=== PATIENT | male | born 1990 | race Caucasian/White ===

== ENCOUNTER 2025-02-06 14:59 | Emergency (ER) | payer SELFPAY ==
[2025-02-06 15:03] VITALS: BP 129/83
[2025-02-06 16:36] LABS: % Basophils 0.6 % (0-2); % Eosinophils 3.4 % (0-6); % Immature Granulocytes 0.6 % (0-0.5); % Lymphocytes 6.9 % (20.5-51.1); % Monocytes 6.3 % (1.7-9.3); % Neutrophils 82.2 % (42.2-75.2); Absolute Basophils 0.1 10^3/uL (0-0.2); Absolute Eosinophils 0.4 10^3/uL (0-0.7); Absolute Immature Granulocytes 0.1 10^3/uL (0-0.05); Absolute Lymphocytes 0.8 10^3/uL (1.2-3.4); Absolute Monocytes 0.8 10^3/uL (0.1-0.6); Hematocrit 34.3 % (39.0-52.0); Hemoglobin 10.7 g/dL (13.0-18.0); Mean Corp Hgb Conc. 31.2 g/dL (33.0-37.0); Mean Corpuscular Hgb 23.7 pg (27.0-31.0); Mean Corpuscular Volume 75.9 fL (80.0-94.0); Mean Platelet Volume 8.5 fL (7.4-10.4); Nucleated Red Blood Cells % 0 % (-); Platelet Count 451 10^3/uL (130-400); Red Blood Cell Count 4.52 10^6/uL (4.70-6.10); Red Cell Dist. Width 15.2 % (11.5-14.5); White Blood Cell Count 12.1 10^3/uL (4.8-10.8)
[2025-02-06 16:47] LABS: ALT (SGPT) 18 U/L (0-50); AST (SGOT) 20 U/L (17-59); Albumin 3.3 g/dl (3.5-5.0); Alkaline Phosphatase 58 U/L (38-126); Blood Urea Nitrogen 20 mg/dl (9-20); Calcium 9.2 mg/dl (8.4-10.2); Carbon Dioxide 26 mmol/L (22-30); Chloride 106 mmol/L (98-107); Glucose 97 mg/dl (70-99); Potassium 4.3 mmol/L (3.5-5.1); Sodium 138 mmol/L (135-145); Total Bilirubin 0.5 mg/dl (0.2-1.3); Total Protein 6.5 g/dl (6.3-8.2); eGFR > 60.00
--- NOTE | 2025-02-06 17:09 | ED.GENMED ---
History of Present Illness
<Jacek Castrejon Jr., PA-C - Last Filed: 02/06/25 20:00>
General
Chief Complaint: DVT/Possible Blood Clot
Source: patient
Exam Limitations: none
Time Seen by Provider: 02/06/25 15:30
Nursing documentation reviewed up to this point in time: agreed with
History of Present Illness
History of Present Illness:
34-year-old male presenting to the emergency department today with concerns of swelling discomfort to the left leg worsening over the past week or so. Has some discomfort to the area denies any preceding injury. No history of blood clots no recent
trauma surgery immobilization no fevers or systemic symptoms.
Review of Systems
<JERO Pop Jr. Last Filed: 02/06/25 20:00>
Review of Systems
Allergies reviewed?: Yes
All Other Systems: ROS reviewed and negative except as documented in HPI and ROS
Phy Exam
<Jacek Castrejon Jr., PA-C - Last Filed: 02/06/25 20:00>
Physical Exam
Physical Exam:
GENERAL: Alert , in no apparent distress
EYE: pupils equal and reactive
NECK: Supple, no significant adenopathy.
ENT: o/p clr, mmm.
CARDIAC: Regular rate and rhythm .
LUNGS: Clear breath sounds bilaterally, no acute respiratory distress, no wheezes/rales/rhonchi
ABDOMEN: Soft, without focal tenderness, no r/g, no cvat
NEUROLOGICAL: Alert and oriented, no focal neuro deficits
SKIN: Redness swelling to the distal left vazquez roughly 5 cm in diameter. No fluctuance or induration. Vague pitting edema +1 from the mid vazquez distally otherwise warm and dry, skin intact.
MUSCULOSKELETAL: No edema, well perfused.
PSYCH: Normal and appropriate interaction.
Course
<JERO Pop Jr. Last Filed: 02/06/25 20:00>
Orders/Labs/Results
Orders:
Orders
02/06/25 16:10
Venous Doppler Lwr Ext Left [US Periph Venous LOWER Ext LT] Urgent
Comment:
Reason For Exam: leg swelling
02/06/25 16:28
CBC/With Diff [Complete Blood Count/With Diff] Urgent
CMP [Comprehensive Metabolic Panel] Urgent
Lyme Progressive Urgent
Comment: ADD ON
02/06/25 19:37
Add On- LAB Urgent
Tests Added?: Lyme progressive
Dexamethasone Sod Phosphate [Decadron] 4 mg IV NOW STA
Abnormal Lab Results
02/06/25
16:28
WBC 12.1 H 10^3/uL
(4.8-10.8)
RBC 4.52 L 10^6/uL
(4.70-6.10)
Hgb 10.7 L g/dL
(13.0-18.0)
Hct 34.3 L %
(39.0-52.0)
MCV 75.9 L fL
(80.0-94.0)
MCH 23.7 L pg
(27.0-31.0)
MCHC 31.2 L g/dL
(33.0-37.0)
RDW 15.2 H %
(11.5-14.5)
Plt Count 451 H 10^3/uL
(130-400)
Abs Immat Gran (auto) 0.1 H 10^3/uL
(0-0.05)
Absolute Neuts (auto) 10.0 H 10^3/uL
(1.4-6.5)
Absolute Lymphs (auto) 0.8 L 10^3/uL
(1.2-3.4)
Absolute Monos (auto) 0.8 H 10^3/uL
(0.1-0.6)
Immature Gran % 0.6 H %
(0-0.5)
Neutrophils % 82.2 H %
(42.2-75.2)
Lymphocytes % 6.9 L %
(20.5-51.1)
Albumin 3.3 L g/dl
(3.5-5.0)
02/06/25 16:28
02/06/25 16:28
Vital Signs
Initial and Last Documented VS:
Initial Vital Signs
Temp Pulse Resp BP Pulse Ox
98.4 F 105 18 129/83 100
02/06/25 15:03 02/06/25 15:03 02/06/25 15:03 02/06/25 15:03 02/06/25 15:03
Last Documented Vital Signs
Temp Pulse Resp BP Pulse Ox
98.4 F 105 18 129/83 100
02/06/25 15:03 02/06/25 15:03 02/06/25 15:03 02/06/25 15:03 02/06/25 15:03
<Jaclyn Jones, [employer] - Last Filed: 02/06/25 23:09>
Orders/Labs/Results
Orders:
Orders
02/06/25 16:10
Venous Doppler Lwr Ext Left [US Periph Venous LOWER Ext LT] Urgent
Comment:
Reason For Exam: leg swelling
02/06/25 16:28
CBC/With Diff [Complete Blood Count/With Diff] Urgent
CMP [Comprehensive Metabolic Panel] Urgent
Lyme Progressive Urgent
Comment: ADD ON
02/06/25 19:37
Add On- LAB Urgent
Tests Added?: Lyme progressive
Dexamethasone Sod Phosphate [Decadron] 4 mg IV NOW STA
Abnormal Lab Results
02/06/25
16:28
WBC 12.1 H 10^3/uL
(4.8-10.8)
RBC 4.52 L 10^6/uL
(4.70-6.10)
Hgb 10.7 L g/dL
(13.0-18.0)
Hct 34.3 L %
(39.0-52.0)
MCV 75.9 L fL
(80.0-94.0)
MCH 23.7 L pg
(27.0-31.0)
MCHC 31.2 L g/dL
(33.0-37.0)
RDW 15.2 H %
(11.5-14.5)
Plt Count 451 H 10^3/uL
(130-400)
Abs Immat Gran (auto) 0.1 H 10^3/uL
(0-0.05)
Absolute Neuts (auto) 10.0 H 10^3/uL
(1.4-6.5)
Absolute Lymphs (auto) 0.8 L 10^3/uL
(1.2-3.4)
Absolute Monos (auto) 0.8 H 10^3/uL
(0.1-0.6)
Immature Gran % 0.6 H %
(0-0.5)
Neutrophils % 82.2 H %
(42.2-75.2)
Lymphocytes % 6.9 L %
(20.5-51.1)
Albumin 3.3 L g/dl
(3.5-5.0)
02/06/25 16:28
02/06/25 16:28
Vital Signs
Initial and Last Documented VS:
Initial Vital Signs
Temp Pulse Resp BP Pulse Ox
98.4 F 105 18 129/83 100
02/06/25 15:03 02/06/25 15:03 02/06/25 15:03 02/06/25 15:03 02/06/25 15:03
Last Documented Vital Signs
Temp Pulse Resp BP Pulse Ox
98.4 F 105 18 129/83 100
02/06/25 15:03 02/06/25 15:03 02/06/25 15:03 02/06/25 15:03 02/06/25 15:03
<Jacek Castrejon Jr., PA-C - Last Filed: 02/06/25 20:00>
MDM/Problems Addressed
MDM/Problems Addressed:
34-year-old male presenting to the emergency department today with concerns of left leg swelling worsening over the past week or so. Denies any inciting event. There is a redness and swelling to the distal left vazquez mild tenderness to the area no
fluctuance or induration no evidence of abscess. Some surrounding pitting edema. Labs were obtained without acute findings other than slightly elevated white count and slight anemia.
<Jaclyn Jones NP - Last Filed: 02/06/25 23:09>
MDM/Problems Addressed
MDM/Problems Addressed:
34-year-old male presenting to the emergency department today with concerns of left leg swelling worsening over the past week or so. Denies any inciting event. There is a redness and swelling to the distal left vazquez mild tenderness to the area no
fluctuance or induration no evidence of abscess. Some surrounding pitting edema. Labs were obtained without acute findings other than slightly elevated white count and slight anemia.
7:15 p.m.
US neg for DVT
Red, warm area localized for 2-3 weeks, not improving, doubtful Lyme's but will switch to Doxycycline pending Lyme results.
<Jacek Castrejon Jr., PA-C - Last Filed: 02/06/25 20:00>
*Critical Care Note
Total Time (30-74mins, 75-104mins- exclusive of procedures): Not Applicable
ED Attending Note
<Jacek Castrejon Jr., PA-C - Last Filed: 02/06/25 20:00>
-
Portions of this chart may have been created with voice recognition software.� Occasional wrong word or��sound alike� substitutions may have occurred due to the inherent limitations of voice recognition software.
Discharge Plan
Departure
Patient Disposition: Home (Routine Discharge)
Date of Disposition: 02/06/25
Time of Disposition: 19:17
Patient with high blood pressure during this ER visit?: No
Condition: Good
Covid-19: Not Applicable
Discharge Problem:
Cellulitis
Instructions: Cellulitis (Skin Infection), Adult (DC)
Prescriptions:
New
doxycycline hyclate 100 mg tablet
100 mg PO BID Qty: 20 0RF
Referrals:
[facility] [Provider Group] - Follow up in 2-3 days
Activity Restrictions/Additional Instructions:
You came to the emergency department today with concerns of redness and swelling to your left lower extremity. This could be consistent with an infection. Please take the prescribed antibiotic and follow-up closely with your primary care doctor.
Return for any worsening, new or concerning symptoms.
Your Lyme test result should be done by Sunday. If you haven't heard anything by then call [phone] and ask for [place] and I will get it for you
If the Lyme test is positive you will need another 11 days on the Doxycycline
Interventions
Interventions:
*Risk Screen - Suicide Last Done: 02/06/25 15:03
*General Assessment Last Done: 02/06/25 15:03
*Neglect/Abuse Screening Last Done: 02/06/25 15:03
*ED- Fall Risk Assessment Last Done: 02/06/25 17:38
*Nursing Disposition Last Done: 02/06/25 19:51
ED- Pulmonary Assessment Last Done: 02/06/25 15:54
ED-Peripheral Vascular Assessment Last Done: 02/06/25 17:38
ED-Skin Assessment Last Done: 02/06/25 15:54
Discharge Date and Time
Print Language: PASHTO
[2025-02-09 14:12] LABS: Lyme Antibody Screen, EIA Presump. Positive (Negative)
== END 2025-02-06 19:51 | disposition home or self-care (01) ==
LOC: EMR 14:59
PROVIDERS: Physician Assistant; EMERGENCY PHYSICIAN Student in an Organized Health Care Education/Training Program
DX: L03.116 Cellulitis of left lower limb (principal)
CPT/HCPCS: 99284; 80053; 85025; 86617; 86618; 93971

== ENCOUNTER 2025-08-19 20:26 | Inpatient (IN) | payer MEDICARE, SELFPAY ==
[2025-08-19 13:07] VITALS: BP 112/66
[2025-08-19 13:27] LABS: Hematocrit 36.0 % (39.0-52.0); Hemoglobin 10.9 g/dL (13.0-18.0); Mean Corp Hgb Conc. 30.3 g/dL (33.0-37.0); Mean Corpuscular Volume 74.1 fL (80.0-94.0); Nucleated Red Blood Cells % 0 % (-); Platelet Count 527 10^3/uL (130-400); Red Cell Dist. Width 15.5 % (11.5-14.5)
[2025-08-19 13:35] LABS: ALT (SGPT) 13 U/L (0-50); AST (SGOT) 13 U/L (17-59); Albumin 3.4 g/dl (3.5-5.0); Alkaline Phosphatase 50 U/L (38-126); Blood Urea Nitrogen 16 mg/dl (9-20); Calcium 9.0 mg/dl (8.4-10.2); Carbon Dioxide 25 mmol/L (22-30); Chloride 101 mmol/L (98-107); Glucose 111 mg/dl (70-99); Lipase < 10 U/L (23-300); Potassium 4.2 mmol/L (3.5-5.1); Sodium 131 mmol/L (135-145); Total Protein 6.5 g/dl (6.3-8.2); eGFR > 60.00
--- NOTE | 2025-08-19 15:26 | ED.GENMED ---
History of Present Illness
<Jaclyn Jones NETWORK DESKTOP SUPPORT SPECIALIST - Last Filed: 08/22/25 14:40>
General
Chief Complaint: Abdominal Pain
Source: patient
Exam Limitations: none
Time Seen by Provider: 08/19/25 15:02
Nursing documentation reviewed up to this point in time: agreed with
History of Present Illness
History of Present Illness:
35-year-old male with history depression, is here for significant abdominal pain. Patient states he has been having abdominal issues for the past 8 months, he has lost about 35 pounds in that time. For the past 10 days his abdominal pain has been
constant waxing and waning from -08/07. He is having trouble sleeping due to the pain.
He saw [facility] and had a CT T scan of his abdomen and pelvis with contrast on 03/25/2025-I called there and they are supposed to be faxing me the read
He saw [facility] on 04/29/2025 and has an endoscopy and colonoscopy scheduled for August. He is here stating he cannot wait that long because the pain is unrelenting. He states they cannot see him any sooner
He has orders for lab work from them which he has not gotten done yet.
Denies fever or chills. Feels nauseous, has not vomited, has had diarrhea, last diarrheal stool was this morning, denies change in the color of his stools.
He has tried ibuprofen for the pain, has taken Imodium and simethicone without much relief
Past History
<Jaclyn Jones NETWORK DESKTOP SUPPORT SPECIALIST - Last Filed: 08/22/25 14:40>
Past History
ED Past Medical History: Psychiatric (Depression)
ED Past Surgical History: Orthopedic
Social History
Tobacco: Smoker
Alcohol: None
Personal:
Living: with family
Employment: Employed
Review of Systems
<Jaclyn Jones NETWORK DESKTOP SUPPORT SPECIALIST - Last Filed: 08/22/25 14:40>
Review of Systems
Allergies reviewed?: Yes
All Other Systems: ROS reviewed and negative except as documented in HPI and ROS
Constitutional: Reports weight loss (States he has lost 35 pounds in the past 8 months since his abdominal symptoms began); Denies fever or chills
Respiratory: Denies trouble breathing
Cardiac: Denies chest pain
ABD/GI: Reports abdominal pain, nausea, diarrhea and anorexia; Denies vomiting, bloody stools or black stools
: Denies dysuria or difficulty voiding
Musculoskeletal: Reports no symptoms
Skin: Reports no symptoms
Neurological: Reports no symptoms
Phy Exam
<Jaclyn Jones, NETWORK DESKTOP SUPPORT SPECIALIST - Last Filed: 08/22/25 14:40>
Physical Exam
Physical Exam:
GENERAL: No acute distress. A&Ox3.
CONSTITUTIONAL: Afebrile.
EYES: clear, conjunctivae normal
ENMT: moist mucus membranes, Pharynx nl
RESPIRATORY: Regular respirations, nonlabored, lungs clear.
CARDIOVASCULAR: Regular rate and rhythm, no murmurs, no rubs.
GI: patient is curled up on the bed holding his stomach., Flat, generally tender, hyperactive bowel sounds throughout
MUSCULOSKELETAL: Moves with ease. Well perfused.
SKIN: Warm, dry, pale
PSYCH: Anxious mood and affect. Well kept, interactive and appropriate
NEUROLOGIC: Awake, alert and oriented. No focal neurological deficits
Course
<Jaclyn Jones, NETWORK DESKTOP SUPPORT SPECIALIST - Last Filed: 08/22/25 14:40>
Orders/Labs/Results
Orders:
Orders
08/19/25 Breakfast
Clear Liquid
At Your Request: Full Participation
Clear Liquids: No red liquids
08/19/25 13:12
Amylase Urgent
Comment: TSH REFLEX,FERRITIN,TIBC,AMYLASE ADDED ON BY FLOOR 3:31PM 08-19-25
C-Reactive Protein Urgent
Complete Blood Count/With Diff Urgent
Comprehensive Metabolic Panel Urgent
Erythrocyte Sed Rate Urgent
Comment: CRP & ESR ADDED ON BY FLOOR 3:30PM 08-19-25
Ferritin Urgent
Folate Urgent
Comment: ADD ON
Iron Urgent
Comment: ADD
Lipase Urgent
TSH Reflex To Free T4 Urgent
Total Iron Binding Urgent
Vitamin B12 Urgent
Comment: ADD ON
08/19/25 15:16
0.9% Sodium Chloride 1000 ml [Nss] 1,000 ml IV BOLUS
HYDROmorphone [Dilaudid] 0.5 mg IV NOW STA
Ondansetron Injectable [Zofran] 4 mg IV NOW STA
08/19/25 15:23
Add On- LAB Urgent
Tests Added?: CRP/ESR
08/19/25 15:25
Iohexol [Omnipaque] See Protocol PO NOW STA
08/19/25 15:26
CT Abd/pel W Iv And Oral Contr Urgent
Comment:
Reason For Exam: abdominal pain, diarrhea, wt loss
08/19/25 15:31
Add On- LAB Urgent
Tests Added?: TSH, reflex T4, Ferritin, FE with TIBC and saturation, amylase
08/19/25 16:56
HYDROmorphone [Dilaudid] 1 mg IV NOW STA
08/19/25 18:51
STOOL [C difficile Antigen & Toxins] Urgent
CHERYL Source: Feces/Stool
Specimen Description:
Date Specimen was Collected: 08/20/25
Time Specimen was Collected: 12:09
Stool Culture Urgent
CHERYL Source: Feces/Stool
Specimen Description:
Date Specimen was Collected: 08/20/25
Time Specimen was Collected: 12:09
08/19/25 19:21
LevoFLOXacin 500 MG/100 ML [Levaquin] 500 mg in 100 ml IV NOW
MetroNIDAZOLE 500 MG/100 ML [Flagyl 500 mg] 100 ml IV NOW
08/19/25 19:46
Calprotectin, Fecal [S] Urgent
Date Specimen was Collected: 08/20/25
Time Specimen was Collected: 12:09
08/19/25 19:47
Admit/Transfer Patient As Directed
Co-Sign Provider:
Level of Care: Inpatient admission
Assign to:: Medical/Surgical
Physician / Group: Fred
Diagnosis: Acute Crohn's
Reason for Hospitalization: IV abx
Expected length of stay greater than two midnights?: Yes
ELOS- Estimated Length of Stay in days: 3
I certify the patient meets the requirements for IP care: Yes
PRN Pain Medication Management As Directed
May give lesser potent ordered pain med per pt: Yes
preference::
Protocol:: Medication orders for pain may be administered in a
manner that supports deferring to patient preference
when the pt is:
- Requesting an ordered lesser potent pain medication.
Least to most potent pain medications are defined
as: acetaminophen < NSAID < tramadol < opioids
(morphine, oxycodone, hydromorphone).
- Requesting a lesser dose of the same medication IF
ORDERED.
- Requesting a less intrusive route of administration
if both routes are prescribed by the provider (PO <
IV).
08/19/25 19:49
Code Status As Directed
Resuscitation Status: Full Code
08/19/25 19:54
Add On- LAB Routine
Tests Added?: iron, folate, vit b12
08/19/25 20:13
HYDROmorphone [Dilaudid] 1 mg IV NOW STA
08/19/25 20:30
0.9% Sodium Chloride 1000 ml [Nss] 1,000 ml IV 125 mls/hr
08/19/25 21:22
Acetaminophen [Tylenol] 650 mg PO Q4HPRN PRN
HYDROmorphone [Dilaudid] 0.5 mg IV Q3HPRN PRN
Ondansetron Injectable [Zofran] 4 mg IV Q6HPRN PRN
08/19/25 21:22
DIETARY IP CONSULT Routine
Reason for Consult: weight loss
GASTROINTESTINAL CONSULT Routine
Consulting Provider: Juanis Barrientos
Was physician already notified: Yes
Activity As Directed
Activity Level: Out of Bed-Early Mobility
With Assistance
Pneumatic Compression Sleeves As Directed
Type: Knee high
Vital Signs As Directed
Frequency: Per unit guidelines
DX Deep Vein Thrombosis Video Routine
08/20/25 05:25
Basic Metabolic Panel IN AM
Complete Blood Count/No Diff IN AM
Magnesium IN AM
08/20/25 08:00
Bupropion(24Hr)Extended Releas [WELLBUTRIN XL (24 hour extended release)] 300 mg PO DAILY
08/20/25 14:00
Ferric Gluconate [Ferrlecit] 125 mg 0.9% Sodium Chloride 100 ml [Nss] 100 ml IV DAILY@1400
Abnormal Lab Results
08/19/25
13:12
Hgb 10.9 L g/dL
(13.0-18.0)
Hct 36.0 L %
(39.0-52.0)
MCV 74.1 L fL
(80.0-94.0)
MCH 22.4 L pg
(27.0-31.0)
MCHC 30.3 L g/dL
(33.0-37.0)
RDW 15.5 H %
(11.5-14.5)
Plt Count 527 H 10^3/uL
(130-400)
Abs Immat Gran (auto) 0.1 H 10^3/uL
(0-0.05)
Absolute Neuts (auto) 8.0 H 10^3/uL
(1.4-6.5)
Absolute Lymphs (auto) 0.6 L 10^3/uL
(1.2-3.4)
Absolute Monos (auto) 1.2 H 10^3/uL
(0.1-0.6)
Immature Gran % 0.8 H %
(0-0.5)
Neutrophils % 80.1 H %
(42.2-75.2)
Lymphocytes % 5.7 L %
(20.5-51.1)
Monocytes % 11.7 H %
(1.7-9.3)
ESR 51 H mm/hour
(0-20)
Sodium 131 L mmol/L
(135-145)
Glucose 111 H mg/dl
(70-99)
Iron < 20 L ug/dl
(49-181)
TIBC 175 L ug/dl
(261-462)
AST 13 L U/L
(17-59)
C-Reactive Protein 193.30 H mg/L
(0.0-10.00)
Albumin 3.4 L g/dl
(3.5-5.0)
Lipase < 10 L U/L
(23-300)
08/19/25 13:12
08/19/25 13:12
Vital Signs
Initial and Last Documented VS:
Initial Vital Signs
Temp Pulse Resp BP Pulse Ox
98.6 F 108 20 112/66 100
08/19/25 13:07 08/19/25 13:07 08/19/25 13:07 08/19/25 13:07 08/19/25 13:07
Last Documented Vital Signs
Temp Pulse Resp BP Pulse Ox
97.6 F 72 16 126/64 98
08/22/25 07:50 08/22/25 07:50 08/22/25 07:50 08/22/25 07:50 08/22/25 07:50
<Narciso French PA-C - Last Filed: 08/19/25 19:28>
Orders/Labs/Results
Orders:
Orders
08/19/25 Breakfast
Clear Liquid
At Your Request: Full Participation
Clear Liquids: No red liquids
08/19/25 13:12
Amylase Urgent
Comment: TSH REFLEX,FERRITIN,TIBC,AMYLASE ADDED ON BY FLOOR 3:31PM 08-19-25
C-Reactive Protein Urgent
Complete Blood Count/With Diff Urgent
Comprehensive Metabolic Panel Urgent
Erythrocyte Sed Rate Urgent
Comment: CRP & ESR ADDED ON BY FLOOR 3:30PM 08-19-25
Ferritin Urgent
Folate Urgent
Comment: ADD ON
Iron Urgent
Comment: ADD
Lipase Urgent
TSH Reflex To Free T4 Urgent
Total Iron Binding Urgent
Vitamin B12 Urgent
Comment: ADD ON
08/19/25 15:16
0.9% Sodium Chloride 1000 ml [Nss] 1,000 ml IV BOLUS
HYDROmorphone [Dilaudid] 0.5 mg IV NOW STA
Ondansetron Injectable [Zofran] 4 mg IV NOW STA
08/19/25 15:23
Add On- LAB Urgent
Tests Added?: CRP/ESR
08/19/25 15:25
Iohexol [Omnipaque] See Protocol PO NOW STA
08/19/25 15:26
CT Abd/pel W Iv And Oral Contr Urgent
Comment:
Reason For Exam: abdominal pain, diarrhea, wt loss
08/19/25 15:31
Add On- LAB Urgent
Tests Added?: TSH, reflex T4, Ferritin, FE with TIBC and saturation, amylase
08/19/25 16:56
HYDROmorphone [Dilaudid] 1 mg IV NOW STA
08/19/25 18:51
STOOL [C difficile Antigen & Toxins] Urgent
CHERYL Source: Feces/Stool
Specimen Description:
Date Specimen was Collected: 08/20/25
Time Specimen was Collected: 12:09
Stool Culture Urgent
CHERYL Source: Feces/Stool
Specimen Description:
Date Specimen was Collected: 08/20/25
Time Specimen was Collected: 12:09
08/19/25 19:21
LevoFLOXacin 500 MG/100 ML [Levaquin] 500 mg in 100 ml IV NOW
MetroNIDAZOLE 500 MG/100 ML [Flagyl 500 mg] 100 ml IV NOW
08/19/25 19:46
Calprotectin, Fecal [S] Urgent
Date Specimen was Collected: 08/20/25
Time Specimen was Collected: 12:09
08/19/25 19:47
Admit/Transfer Patient As Directed
Co-Sign Provider:
Level of Care: Inpatient admission
Assign to:: Medical/Surgical
Physician / Group: Fred
Diagnosis: Acute Crohn's
Reason for Hospitalization: IV abx
Expected length of stay greater than two midnights?: Yes
ELOS- Estimated Length of Stay in days: 3
I certify the patient meets the requirements for IP care: Yes
PRN Pain Medication Management As Directed
May give lesser potent ordered pain med per pt: Yes
preference::
Protocol:: Medication orders for pain may be administered in a
manner that supports deferring to patient preference
when the pt is:
- Requesting an ordered lesser potent pain medication.
Least to most potent pain medications are defined
as: acetaminophen < NSAID < tramadol < opioids
(morphine, oxycodone, hydromorphone).
- Requesting a lesser dose of the same medication IF
ORDERED.
- Requesting a less intrusive route of administration
if both routes are prescribed by the provider (PO <
IV).
08/19/25 19:49
Code Status As Directed
Resuscitation Status: Full Code
08/19/25 19:54
Add On- LAB Routine
Tests Added?: iron, folate, vit b12
08/19/25 20:13
HYDROmorphone [Dilaudid] 1 mg IV NOW STA
08/19/25 20:30
0.9% Sodium Chloride 1000 ml [Nss] 1,000 ml IV 125 mls/hr
08/19/25 21:22
Acetaminophen [Tylenol] 650 mg PO Q4HPRN PRN
HYDROmorphone [Dilaudid] 0.5 mg IV Q3HPRN PRN
Ondansetron Injectable [Zofran] 4 mg IV Q6HPRN PRN
08/19/25 21:22
DIETARY IP CONSULT Routine
Reason for Consult: weight loss
GASTROINTESTINAL CONSULT Routine
Consulting Provider: Juanis Barrientos
Was physician already notified: Yes
Activity As Directed
Activity Level: Out of Bed-Early Mobility
With Assistance
Pneumatic Compression Sleeves As Directed
Type: Knee high
Vital Signs As Directed
Frequency: Per unit guidelines
DX Deep Vein Thrombosis Video Routine
08/20/25 05:25
Basic Metabolic Panel IN AM
Complete Blood Count/No Diff IN AM
Magnesium IN AM
08/20/25 08:00
Bupropion(24Hr)Extended Releas [WELLBUTRIN XL (24 hour extended release)] 300 mg PO DAILY
08/20/25 14:00
Ferric Gluconate [Ferrlecit] 125 mg 0.9% Sodium Chloride 100 ml [Nss] 100 ml IV DAILY@1400
Abnormal Lab Results
08/19/25
13:12
Hgb 10.9 L g/dL
(13.0-18.0)
Hct 36.0 L %
(39.0-52.0)
MCV 74.1 L fL
(80.0-94.0)
MCH 22.4 L pg
(27.0-31.0)
MCHC 30.3 L g/dL
(33.0-37.0)
RDW 15.5 H %
(11.5-14.5)
Plt Count 527 H 10^3/uL
(130-400)
Abs Immat Gran (auto) 0.1 H 10^3/uL
(0-0.05)
Absolute Neuts (auto) 8.0 H 10^3/uL
(1.4-6.5)
Absolute Lymphs (auto) 0.6 L 10^3/uL
(1.2-3.4)
Absolute Monos (auto) 1.2 H 10^3/uL
(0.1-0.6)
Immature Gran % 0.8 H %
(0-0.5)
Neutrophils % 80.1 H %
(42.2-75.2)
Lymphocytes % 5.7 L %
(20.5-51.1)
Monocytes % 11.7 H %
(1.7-9.3)
ESR 51 H mm/hour
(0-20)
Sodium 131 L mmol/L
(135-145)
Glucose 111 H mg/dl
(70-99)
Iron < 20 L ug/dl
(49-181)
TIBC 175 L ug/dl
(261-462)
AST 13 L U/L
(17-59)
C-Reactive Protein 193.30 H mg/L
(0.0-10.00)
Albumin 3.4 L g/dl
(3.5-5.0)
Lipase < 10 L U/L
(23-300)
08/19/25 13:12
08/19/25 13:12
Vital Signs
Initial and Last Documented VS:
Initial Vital Signs
Temp Pulse Resp BP Pulse Ox
98.6 F 108 20 112/66 100
08/19/25 13:07 08/19/25 13:07 08/19/25 13:07 08/19/25 13:07 08/19/25 13:07
Last Documented Vital Signs
Temp Pulse Resp BP Pulse Ox
97.6 F 72 16 126/64 98
08/22/25 07:50 08/22/25 07:50 08/22/25 07:50 08/22/25 07:50 08/22/25 07:50
<Jaclyn Jones NP - Last Filed: 08/22/25 14:40>
MDM/Problems Addressed
Differential Diagnosis Includes:
Diverticulitis, colitis
MDM/Problems Addressed:
35-year-old male with history depression, is here for significant abdominal pain. Patient states he has been having abdominal issues for the past 8 months, he has lost about 35 pounds in that time. For the past 10 days his abdominal pain has been
constant waxing and waning from 2-08/07. He is having trouble sleeping due to the pain.
He saw [facility] and had a CT T scan of his abdomen and pelvis with contrast on 03/25/2025-I called there and they are supposed to be faxing me the read
He saw [facility] on 04/29/2025 and has an endoscopy and colonoscopy scheduled for August. He is here stating he cannot wait that long because the pain is unrelenting. He states they cannot see him any sooner
He has orders for lab work from them which he has not gotten done yet.
Denies fever or chills. Feels nauseous, has not vomited, has had diarrhea, last diarrheal stool w
CBC: WBCs 9.9 with a left shift. Hemoglobin 10.9 consistent with his last one of 02/06/2025 indices indicating a chronic element to the anemia CMP:
CMP with no clinically significant abnormality.
Lipase WNL
CRP 193.30
ESR 51
5:[address] scan
Case discussed with Cheng FINNEGAN who will assume care from this point.
<Jaclny Jones NETWORK DESKTOP SUPPORT SPECIALIST - Last Filed: 08/22/25 14:40>
*Pulse Oximetry
SaO2: 100
Oxygen Mode of Delivery: Room air
<Narciso French PA-C - Last Filed: 08/19/25 19:28>
*Pulse Oximetry
Patient hypoxic: no
*Critical Care Note
Total Time (30-74mins, 75-104mins- exclusive of procedures): Not Applicable
<Narciso French PA-C - Last Filed: 08/19/25 19:28>
Update Note
Update Note:
Assumed care of patient pending CT of abdomen. CT demonstrates
1. SEVERE ACUTE ACTIVE CROHN'S DISEASE involving the ILEUM and PROXIMAL COLON with severe wall thickening and mucosal hyperenhancement. An acute infectious ileocolitis is a less likely diagnostic possibility given the chronicity of the patient's
symptoms.
I spoke with GI who recommended Levaquin and Flagyl for treatment. Stool studies were ordered but patient unable to provide any sample. Will admit to hospital given ongoing symptoms weight loss and malnutrition
ED Attending Note
<Jaclyn Jones NETWORK DESKTOP SUPPORT SPECIALIST - Last Filed: 08/22/25 14:40>
-
Portions of this chart may have been created with voice recognition software.� Occasional wrong word or��sound alike� substitutions may have occurred due to the inherent limitations of voice recognition software.
Discharge Plan
Departure
Patient Disposition: Admit
Date of Disposition: 08/19/25
Time of Disposition: 19:27
Presentation/result/management discussed w/ accepting MD/DO: Hospitalist
Discharge Problem:
Acute Crohn's disease
Interventions
Interventions:
*Risk Screen - Suicide Last Done: 08/20/25 17:10
*General Assessment Last Done: 08/19/25 13:07
*Neglect/Abuse Screening Last Done: 08/19/25 15:30
*ED- Fall Risk Assessment Last Done: 08/20/25 00:29
*ED COVID-19 Vaccine History Last Done: 08/20/25 17:10
*ED Influenza Vaccine History Last Done: 08/19/25 15:30
*Nursing Disposition Last Done: 08/20/25 17:15
NC-Eplfkb-Ibcxxwiced Assessment Last Done: 08/19/25 15:30
Discharge Date and Time
Discharge Date/Time: 08/20/25 17:16
[2025-08-19] MEDS: DILAUDID 0.5 MG IV ×2 (15:38→23:24)
[2025-08-19] MEDS: ZOFRAN 4 MG IV ×2 (15:38→23:24)
[2025-08-19] MEDS: OMNIPAQUE 50 ML PO (15:39)
[2025-08-19] MEDS: NSS 1000 IV ×2 (15:39→21:10)
[2025-08-19 16:00] VITALS: BP 98/62
[2025-08-19 16:24] LABS: Amylase 41 U/L (30-110)
[2025-08-19 16:33] LABS: Total Iron Binding Capacity 175 ug/dl (261-462)
[2025-08-19 16:43] LABS: C-Reactive Protein 193.30 mg/L (0.0-10.00)
[2025-08-19 17:00] VITALS: BP 115/70
[2025-08-19 17:04] LABS: Ferritin 211.0 ng/ml (17.9-464.0)
[2025-08-19] MEDS: DILAUDID 1 MG IV ×2 (17:04→20:15)
--- NOTE | 2025-08-19 19:54 | HPS.HSE ---
Addendum entered and electronically signed by Winston Ibarra DO 08/19/25 21:15:
Patient seen and examined independently. Agree with findings and plan as set forth by Judith Perry PA-C.
Patient is a 35y M with PMH significant for depression who presents to ED complaining of 8 months of weight loss, left -sided abdominal pain, loose / watery stools, etc. Patient denies any bloody or mucousy stools. No prior history of IBD / GI
issues. No known family history of GI disease. Patient estimates that he has lost about 30 lbs in the past 8 months.
Ass:
Colitis / Terminal Ileitis
Weight Loss
Iron Deficiency Anemia
Hyponatremia
Anxiety / Depression
Plan:
Admit for further evaluation and treatment.
Suspect IBD > infectious etiology based on history / exam.
Empiric abx for now per GI recs.
Follow-up stool studies.
GI evaluation for additional recommendations and likely endoscopic examination.
IV iron replacement. Follow H&H.
Original Note:
Family Physician
-
Family Physician: * NONE
Chief Complaint
-
Abdominal Pain
History of Present Illness
Patient is a 35 y/o male past medical history of depression who presents with abdominal pain. Patient reports he has not been doing well for at least the 8 months. He reports worsening abdominal pain particularly over the past 10 days. He reports
anorexia and notes over the last 8 months has lost over 30 lbs. He reports nausea but not vomiting. He reports non-bloody diarrhea. He reports feeling fatigues, and having no energy. He denies fevers, sweats or chills.
Medical History
Past Medical History
Past Medical History: Reports Other
Additional Past Medical History:
Depression
Past Surgical History: Reports Other
Additional Past Surgical History:
Left Shoulder Surgery
Social History
Tobacco: Non-smoker
Alcohol: Occasional (None recently)
Family History
Family History: Other (Denies family history of Crohn's or ulcerative colitis)
Allergies / Home Medications
Allergies reflects when Allergies were last updated in [facility].
Home Medications with original date entered in [facility]
Allergy/Medication List:
Allergies
Allergy/AdvReac Type Severity Reaction Status Date / Time
No Known Allergies Allergy Unverified 08/19/25 13:07
Home Medications
bupropion HCl 300 mg 24 hr tablet, extended release 300 mg PO DAILY 08/19/25
Review of Systems
-
History Source: Patient
A 12 point ROS was completed and negative except as noted: Yes
Constitutional: Reports Weight Loss; Denies Fever or Chills
Respiratory: Denies Cough or Trouble Breathing
Abdomen/GI: Reports See HPI
Physical Exam
Vital Signs
Vital Signs
Temp Pulse Resp BP Pulse Ox
98.6 F 108 20 115/70 96
08/19/25 13:07 08/19/25 13:07 08/19/25 13:07 08/19/25 17:00 08/19/25 18:45
Physical Exam
General: Other (35 y/o male appears thin and pale)
HEENT: Anicteric, Moist mucous membranes and Other (notable dark circles under his eyes)
Respiratory: Clear and Non Labored Respirations
Cardiac: S1/S2, Regular Rhythm and Tachycardia (Slightly)
GI: Soft and Tender (Diffuse)
Rectal: Deferred by Provider
Musculoskeletal: No Clubbing, No Cyanosis and No Edema
Skin: Warm and Dry
Neuro: Awake, Alert, Oriented and Nonfocal/grossly intact
Psych: Calm
Laboratory Results
-
08/19/25 13:12
08/19/25 13:12
Laboratory Results
Total Bilirubin 0.7 mg/dl (0.2-1.3) 08/19/25 13:12
AST 13 U/L (17-59) L 08/19/25 13:12
ALT 13 U/L (0-50) 08/19/25 13:12
Alkaline Phosphatase 50 U/L (38-126) 08/19/25 13:12
Lipase < 10 U/L (23-300) L 08/19/25 13:12
Abd/Pelvis:
SEVERE ACUTE ACTIVE CROHN'S DISEASE involving the ILEUM and PROXIMAL COLON with severe wall thickening and mucosal hyperenhancement. An acute infectious ileocolitis is a less likely diagnostic possibility given the chronicity of the patient's
symptoms.
Data Reviewed
-
Lab Data: Labs Reviewed by me
Impression/Plan
-
Colitis / Terminal Ileitis, likely new-diagnosis of Crohn's Disease
-Consult GI
-Check stool cultures
-Check fecal calprotectin
-Continue levofloxacin and metronidazole
-Allow clear liquids
Iron Deficiency Anemia
-Give coarse of IV iron during hospitalization as iron level is <20
Hyponatremia, likely related to poor oral intake
-Continue IVFs
-Recheck sodium in AM
Depression
-Continue bupropion
DVT proph: SCDs
Code Status: Full Code
[2025-08-19] MEDS: FLAGYL 500 MG 100 IV (20:05)
[2025-08-19] MEDS: LEVAQUIN 100 IV (20:06)
[2025-08-19 20:08] LABS: Iron < 20 ug/dl (49-181)
[2025-08-19 20:11] VITALS: BMI 22.4
[2025-08-19 20:26] VITALS: BMI 22.4
[2025-08-19 21:33] LABS: Folate 5.3 ng/ml (2.76-20); Vitamin B12 523 pg/ml (239-931)
[2025-08-19 23:09] VITALS: BP 113/67
[2025-08-20] MEDS: TYLENOL 650 MG PO ×2 (01:41→20:13)
[2025-08-20] MEDS: DILAUDID 0.5 MG IV ×5 (02:58→21:58)
[2025-08-20 05:21] VITALS: BP 107/63
[2025-08-20 05:48] LABS: Hematocrit 28.3 % (39.0-52.0); Hemoglobin 9.0 g/dL (13.0-18.0); Mean Corp Hgb Conc. 31.8 g/dL (33.0-37.0); Mean Corpuscular Volume 72.9 fL (80.0-94.0); Platelet Count 380 10^3/uL (130-400); Red Cell Dist. Width 15.0 % (11.5-14.5)
[2025-08-20 06:06] LABS: Blood Urea Nitrogen 13 mg/dl (9-20); Calcium 8.3 mg/dl (8.4-10.2); Carbon Dioxide 25 mmol/L (22-30); Chloride 103 mmol/L (98-107); Estimated Creatinine Clearance 109 ml/min; Glucose 91 mg/dl (70-99); Magnesium 1.7 mg/dl (1.6-2.3); Potassium 4.0 mmol/L (3.5-5.1); Sodium 134 mmol/L (135-145); eGFR > 60.00
[2025-08-20] MEDS: NSS 1000 IV ×2 (06:35→17:20)
[2025-08-20 07:00] VITALS: BP 102/57
--- NOTE | 2025-08-20 09:16 | CON.GI ---
Addendum entered and electronically signed by Kimmie Dorado DO 08/20/25 10:57:
The patient was seen and examined by me independently in collaboration with the nurse practitioner.
Past medical history/social history/medications/allergies/family history reviewed.
Lab data and imaging data reviewed.
Robert is a 35 y.o. male with pmhx depression who presents with 8 months of worsening LLQ abdominal pain, weight loss and irregular bowels. His symptoms were intermittent at first and he was able to tolerate them, but over the last few weeks they have
become progressively worse. He saw a GI COLLECT ON DELIVERY CLERK with [facility] (does not recall what location) who suspected new dx of IBD, recommended colonoscopy. Due to insurance issues, he had to reschedule and the next available is in September. He called many times to
try and expedite colonoscopy but was unable to move it up, prompting him to come in for urgent evaluation. He reports losing 30 lbs in the last few months. No family history of celiac disease, IBD or CRC.
Labs significant for microcytic, iron deficiency anemia, Hgb 10.7 --> 90, MCV 72, Plt 380, iron <20, ferritin 211, CRP elevated to 193.3, albumin 3.4
CT A/P: mild hepatosplenomegaly, moderate right sided mesenteric lymphadenopathy, small amount of ascites in the pelvic cul-de-sec and a long length of distal ileum (including TI) demonstrating severe circumferential wall thickening, mucosal
hyperenhancement and intramural edema, loop of ileum extends through the plevis and into left side of midabdomen; large amount of wall thickening in the cecum, ascending colon and proximal transverse colon, concerning for severe acute active crohns
disease involving the ileum and proximal colon.
Overall, findings on labs and imaging suggestive of new crohns colitis diagnosis, supported with patients symptomatology
-CLD, bowel prep today and NPO after midnight for colonoscopy tomorrow to confirm diagnosis
-IV iron
-check c.diff, fecal calpro
-check hepatitis serologies and TB, in the event he requires biologics
Original Note:
Consultation
-
Date/Time Consultation Requested: 08/19/252121
Date/Time Consultation Performed: 08/20/2566
Requesting Provider: Judith Perry PA-C
Performing Provider: PAT Dahl, Danya Dorado DO
Reason for Consultation: concern for crohn's disease
Medical History
Chief Complaint / HPI
Chief Complaint: wt loss, abdominal pain
History of Present Illness:
Pt is a 35yo with hx depression with about 8 months of GI symptoms with abdominal pain left sided, wt loss 35 lbs and change in stool pattern with diarrhea. His symptoms were up and down but last 2 weeks worse. He did seak care with MD in
[place] and was set up for EGD/colon but not until September. He states with continued symptoms present for evaluation. On admission- CT with concern for severe acute active crohn's disease in ileum and proximal colon small amount of ascites,
moderate right sidede mesenteric lymphadenopathy, mild HSM. Pt admits to left sided pain. Pain is worse with eating and better with resting. He also has nausea without vomiting but denies any issue with odynophagia, dysphagia, GERD, constipation,
blood or black in stools. No hx EGD or colonoscopy in past. no family hx IBD. On admission Na 131, glucose 111, iron <20, TIBC 175, % sat no reported, ferritin 211, CRP 193.3, platelets 537, hbg 10.9 with drop to 9, MCV 74.1 albumin 3.4.
Past Medical History
Past Medical History: Psychiatric (depression)
Social History
Tobacco: Smoker (2-3 cig per week)
Alcohol: None
Drug: None
Personal:
Living: With Family
Employment: Other (pt declined to answer)
Family History
Family History: Other (no family hx IBD, GI cancers )
Allergies / Home Medications
Allergy/AdvReac Type Severity Reaction Status Date / Time
No Known Allergies Allergy Unverified 08/19/25 13:07
�Medication �Instructions �Recorded
bupropion HCl 300 mg 24 hr tablet, 300 mg PO DAILY 10/22/25
extended release
Review of Systems
-
History Source: Patient
Constitutional: Reports Weight Loss ( 35 lbs ) and Fatigue
EENT: Reports No Symptoms
Respiratory: Reports No Symptoms
Cardiac: Reports No Symptoms
Abdomen/GI: Reports Abdominal Pain, Nausea and Diarrhea
: Reports No Symptoms
Musculoskeletal: Reports No Symptoms
Skin: Reports No Symptoms
Neurological: Reports Weakness
Endocrine: Reports No Symptoms
Hematologic/Lymphatic: Reports No Symptoms
Vital Signs
Temp Pulse Resp BP Pulse Ox
97.7 F 69 16 102/57 98
08/20/25 07:00 08/20/25 07:00 08/20/25 07:00 08/20/25 07:00 08/20/25 07:00
Physical Exam
Exam
General: Other (thin appearing and pale )
HEENT: Normocephalic and Anicteric
Respiratory: Clear
Cardiac: Regular Rhythm
GI: Soft, Non Distended and Tender (left sided )
Musculoskeletal: No Clubbing and No Cyanosis
Skin: Warm and Dry
Neuro: Awake, Alert and AO x 3
Psych: Calm
Results
WBC 6.6 10^3/uL (4.8-10.8) 08/20/25 05:25
Hgb 9.0 g/dL (13.0-18.0) L 08/20/25 05:25
Hct 28.3 % (39.0-52.0) L 08/20/25 05:25
MCV 72.9 fL (80.0-94.0) L 08/20/25 05:25
Plt Count 380 10^3/uL (130-400) D 08/20/25 05:25
Absolute Neuts (auto) 8.0 10^3/uL (1.4-6.5) H 08/19/25 13:12
Sodium 134 mmol/L (135-145) L 08/20/25 05:25
Potassium 4.0 mmol/L (3.5-5.1) 08/20/25 05:25
Chloride 103 mmol/L (98-107) 08/20/25 05:25
Carbon Dioxide 25 mmol/L (22-30) 08/20/25 05:25
BUN 13 mg/dl (9-20) 08/20/25 05:25
Creatinine 1.0 mg/dL (0.7-1.3) 08/20/25 05:25
Calcium 8.3 mg/dl (8.4-10.2) L 08/20/25 05:25
Total Bilirubin 0.7 mg/dl (0.2-1.3) 08/19/25 13:12
AST 13 U/L (17-59) L 08/19/25 13:12
ALT 13 U/L (0-50) 08/19/25 13:12
Alkaline Phosphatase 50 U/L (38-126) 08/19/25 13:12
Amylase 41 U/L (30-110) 08/19/25 13:12
Lipase < 10 U/L (23-300) L 08/19/25 13:12
Diagnostic Image Results:
08/19/25 CT Abd/pel W Iv And Oral Contr
1. SEVERE ACUTE ACTIVE CROHN'S DISEASE involving the ILEUM and PROXIMAL COLON with severe wall thickening and mucosal hyperenhancement. An acute infectious ileocolitis is a less likely diagnostic possibility given the chronicity of the patient's
symptoms.
2. Small amount of ascites in the pelvic cul-de-sac.
3. Moderate right sided mesenteric lymphadenopathy.
4. Mild hepatosplenomegaly.
5. Transitional lumbosacral vertebral segment.
Prior GI Procedures:
EGD: none
Colonoscopy: none
Assessment / Plan
-
Pt is a 35yo with hx depression with about 8 months of GI symptoms with abdominal pain left sided, wt loss 35 lbs and change in stool pattern with diarrhea. His symptoms were up and down but last 2 weeks worse. He did seek care with MD in
[place] and was set up for EGD/colon but not until September. He states with continued symptoms present for evaluation. On admission- CT with concern for severe acute active crohn's disease in ileum and proximal colon small amount of ascites,
moderate right sidede mesenteric lymphadenopathy, mild HSM. Pt admits to left sided pain. Pain is worse with eating and better with resting. He also has nausea without vomiting but denies any issue with odynophagia, dysphagia, GERD, constipation,
blood or black in stools. No hx EGD or colonoscopy in past. no family hx IBD. On admission Na 131, glucose 111, iron <20, TIBC 175, % sat no reported, ferritin 211, CRP 193.3, platelets 537, hbg 10.9 with drop to 9, MCV 74.1 albumin 3.4.
-8 month onset of wt loss, diarrhea and left sided abdominal pain
-CT concern for severe acute active crohn's disease in ileum and proximal colon
-microcytic iron deficiency anemia
-elevated CRP/ESR
-hypoalbuminemia
-anxiety/depression
PLAN:
etiology of symptoms with concern for underlying crohns disease vs infectious vs other
check stools studies
plan for colonoscopy 08/21
clear diet
trend hbg
IV iron
CRP/ESR noted as elevated fecal price pending, TSH pending
spoke with patient about need for treatment based on colonoscopy finding-- He did voice concern for current changing of insurance plans
discussed with patient need for DVT prophylaxis- continue ambulation as able, add compression stockings then Lovenox after colonoscopy as high risk with concern for IBD
all questions answered reviewed with Dr. Mcfadden
-
-
Thank you for consultation and allowing me to participate in the patient's care. Please call the assistant professor of education GI physician during the after hours with any questions or concerns.
--- NOTE | 2025-08-20 09:20 | PTCARENOTE ---
pt aaox3. states pain in abd pain med given.
--- NOTE | 2025-08-20 09:37 | EDCM ---
Addendum entered by Sydnee Vaughn 08/20/25 09:53:
Pharmacy is [facility]
Original Note:
CM reviewed chart and spoke with pt at bedside in ED
Lives in a multilevel home with . 4 [address] Independent, driving and working
no DME
PCP in the process of getting a new one. Declined any assistance. He is working with his health plan
RX plan yes
Ph[facility]acy [facility]
no hx of VN nor SNF
DCP anticipate to return home when cleared
CM will continue to follow up for dcp needs
[2025-08-20] MEDS: WELLBUTRIN XL (24 hour extended release) 300 MG PO (09:39)
--- NOTE | 2025-08-20 11:19 | W.PN.HOSP.TC ---
Addendum entered and electronically signed by Monica Mcfadden MD 08/20/25 14:13:
Seen and examined the patient. Agree with the plan set forth by the resident. See changes in my documentation
34-year-old male with left-sided abdominal pain, watery stools. No blood in the stools
CT abdomen pelvis-severe acute active Crohn's disease involving ileum and proximal colon with severe wall thickening and mucosal hyperenhancement. Acute infectious ileocolitis is less likely given the chronicity. Small amount of ascites in the
cul-de-sac. Moderate right-sided mesenteric lymphadenopathy. Mild hepatosplenomegaly. Transitional lumbosacral vertebral segment
CVS: S1-S2 normal
Chest: CTA B/L
Abdomen: Soft, mild diffuse tenderness, Bowel sounds present
Extremities: No edema
# Colitis/terminal ileitis
Weight loss
Suspected IBD
CRP elevated 193
Check stool calprotectin
Hold Empiric antibiotics while waiting for GI recommendations
Stool studies rule out infection
# Hyponatremia-better
# Iron deficiency anemia-IV iron
# Anxiety and depression-on bupropion
# DVT prophylaxis-SCDs and Lovenox
# Full code
D/W RN
D/W GI at bed side
Part of this note was created using voice recognition system. Occasional wrong word or��sound alike� substitutions may have inadvertently occurred due to the inherent limitations of voice recognition software. If noted kindly bring it to my
attention for correction.
Original Note:
Today's Communication/Plan
-
Clears today
Analgesics antiemetics
Bowel prep
N.p.o. at midnight
Assessment / Plan
Assessment / Plan
Patient is a 35y M with PMH significant for depression who presents to ED complaining of 8 months of weight loss, left -sided abdominal pain, loose / watery stools, etc. CT abdomen pelvis concerning for inflammatory bowel disease. Patient was
admitted for IBD workup. On admission Na 131, glucose 111, iron <20, TIBC 175, % sat no reported, ferritin 211, CRP 193.3, platelets 537, hbg 10.9 with drop to 9, MCV 74.1 albumin 3.4.
#Abdominal pain
# Chronic diarrhea
Suspected IBD, Crohn's disease
CT concerning for active acute Crohn's disease and ileum and proximal colon
Elevated ESR CRP
-GI consult, appreciate recs
-Check stool cultures
-Check fecal calprotectin
- Hep panel
- IGRA
- c diff
-Allow clear liquids
- Bowel prep
- N.p.o. at midnight
- Colonoscopy
- Antiemetics
- Analgesics
#Anemia of chronic disease
#Microcytic anemia
MCV 74
Hgb 10.9
TIBC 175
Ferritin 211
Likely due to underlying IBD
- IV iron during hospitalization as iron level is <20
#Hyponatremia, likely related to poor oral intake
-Continue IVFs
-Recheck sodium in AM
#Depression
-Continue bupropion
DVT proph: SCDs plus Lovenox
Code Status: Full Code
Anticipated Discharge: 24 - 48 hours
Subjective/Interval History
-
Patient was seen at bedside, he reports feeling about the same with waxing waning abdominal pain. He reports that he has not been seen for this abdominal pain previously and was looking for a GI doc but the next available appointment date was in
September prompting his visit to the ER. This morning he reports no fevers chills nausea vomiting diarrhea shortness of breath or chest pain. Date of Service: August 20, 2025
Objective Data
-
Labs:
Laboratory Results
08/20/25
05:25
WBC 6.6
Hgb 9.0 L
Hct 28.3 L
Plt Count 380 D
Sodium 134 L
Potassium 4.0
Chloride 103
Carbon Dioxide 25
BUN 13
Creatinine 1.0
Glucose 91
Calcium 8.3 L
Vital Signs:
Vital Signs
Temp Pulse Resp BP Pulse Ox
97.7 F 69 16 102/57 98
08/20/25 07:00 08/20/25 07:00 08/20/25 07:00 08/20/25 07:00 08/20/25 07:00
Review of Systems
-
History Source: Patient
Constitutional: Reports No Appetite; Denies Fever, Night Sweats or Chills
EENT: Denies Sore Throat or Runny Nose
Respiratory: Reports No Symptoms; Denies Cough or Trouble Breathing
Cardiac: Reports No Symptoms; Denies Chest Pain or Palpitations
Abdomen/GI: Reports Abdominal Pain, Diarrhea and Anorexia; Denies Nausea, Vomiting or Bloody Stools
Genitourinary: Reports No Symptoms; Denies Dysuria
Skin: Denies Itching or Rash
Neuro: Denies Dizzy
Physical Exam
-
General: No Apparent Distress and Comfortable; Negative Respiratory Distress, Fever or Chills
HEENT: Normocephalic and Atraumatic
Respiratory: Clear to Auscultation; Negative Wheezes or Crackles
Cardiac: Regular Rhythm and S1/S2; Negative Murmur
GI: Soft, Normal Bowel Sounds and Tender (Generalized)
Musculoskeletal: No Clubbing and No Edema
Skin: Warm, Dry and Rash (Perioral papules)
Neuro: Awake and Alert
[2025-08-20] MEDS: MAGNESIUM SULFATE 100 IV (11:24)
[2025-08-20] MEDS: MIRALAX 34 GRAMS PO (11:25)
[2025-08-20 12:20] LABS: TSH 5.55 uIU/ml (0.47-4.68)
[2025-08-20] MEDS: FERRLECIT 110 MG IV (14:43)
[2025-08-20 17:13] VITALS: BP 123/53; BMI 20.6
[2025-08-20 17:23] VITALS: BMI 20.6
[2025-08-20] MEDS: NULYTELY SOLUTION 4 LITERS PO (17:26)
--- NOTE | 2025-08-20 18:17 | PTCARENOTE ---
Patient arrived from ED via stretcher, with Gretel. NSS running at 125 ml/hr concurrently with patient's iron infusion. Weight obtained. VSS. Patient complaining of 4/10 abdominal pain. Abdomen rigid and tender on palpation. Patient denies
nausea. Clear liquid diet maintained--patient to be NPO at midnight for anticipated colonoscopy tomorrow, 08/21. Bowel prep initiated at 1726--patient tolerating prep thus far. Per orders, please contact the physician if patient not tolerating prep.
Knee high SCDs at the foot of bed. Skin check completed. Patient independent in the room yet, this RN did encourage patient to utilize the call becker because of IV pump and pole. Patient oriented to room. All patient needs met. Call becker and personal
belongings within reach.
[2025-08-20] MEDS: DILAUDID 0.25 MG IV (20:13)
[2025-08-20] MEDS: ZOFRAN 4 MG IV (22:00)
[2025-08-20 23:31] VITALS: BP 108/61
[2025-08-21] MEDS: DILAUDID 0.5 MG IV ×7 (01:49→23:28)
[2025-08-21] MEDS: TYLENOL 650 MG PO ×2 (01:54→17:52)
[2025-08-21 07:15] VITALS: BP 95/59
[2025-08-21] MEDS: NSS IV ×2 (07:45)
--- NOTE | 2025-08-21 07:49 | PTCARENOTE ---
Patient refused IV fluids throughout the night and this AM. He was frequently up and OOB to void due to bowel prep for colonoscopy. Upon evaluation this AM, patient states his bowel movements are clear with intermittent green-tinged movements.
Patient denies nausea/vomiting. Patient does complain of moderate to severe abdominal, left lower quadrant pain GI lab updated. Patient due to go for a colonoscopy this morning.
[2025-08-21] MEDS: WELLBUTRIN XL (24 hour extended release) 300 MG PO (08:04)
[2025-08-21 08:34] LABS: Hematocrit 29.5 % (39.0-52.0); Hemoglobin 9.0 g/dL (13.0-18.0); Mean Corp Hgb Conc. 30.5 g/dL (33.0-37.0); Mean Corpuscular Volume 74.3 fL (80.0-94.0); Platelet Count 384 10^3/uL (130-400); Red Cell Dist. Width 15.1 % (11.5-14.5)
[2025-08-21 08:47] LABS: INR 1.38; PT 17.3 Sec (11.4-14.6)
[2025-08-21 08:58] LABS: Blood Urea Nitrogen 6 mg/dl (9-20); Calcium 8.6 mg/dl (8.4-10.2); Carbon Dioxide 26 mmol/L (22-30); Chloride 108 mmol/L (98-107); Estimated Creatinine Clearance 100 ml/min; Glucose 82 mg/dl (70-99); Potassium 4.1 mmol/L (3.5-5.1); Sodium 134 mmol/L (135-145); eGFR > 60.00
[2025-08-21 09:45] LABS: Hepatitis B Surface Antigen Negative (Negative)
[2025-08-21 10:01] LABS: Magnesium 1.9 mg/dl (1.6-2.3)
[2025-08-21 10:03] LABS: Hepatitis C Antibody Negative (Negative)
--- NOTE | 2025-08-21 10:19 | W.PN.UPDATE ---
Update Note
Progress Note Update
Colonoscopy done
Severe edema, erythema, pseudopolyps in transverse colon, unable to pass colonoscope
L colon normal
Bx taken throughout
REC:
IV solumedrol 20mg q8h
NPO
Await path
[2025-08-21] MEDS: SOLU-MEDROL PF 20 MG IV ×2 (11:14→17:55)
--- NOTE | 2025-08-21 12:59 | W.PN.HOSP.TC ---
Addendum entered and electronically signed by Monica Mcfadden MD 08/21/25 15:34:
Seen and examined the patient. Agree with the plan set forth by the resident. See changes in my documentation
34-year-old male with left-sided abdominal pain, watery stools. No blood in the stools
CT abdomen pelvis-severe acute active Crohn's disease involving ileum and proximal colon with severe wall thickening and mucosal hyperenhancement. Acute infectious ileocolitis is less likely given the chronicity. Small amount of ascites in the
cul-de-sac. Moderate right-sided mesenteric lymphadenopathy. Mild hepatosplenomegaly. Transitional lumbosacral vertebral segment
Colonoscopy-localized severe inflammation characterized by erythema, pseudopolyps and congestion in the transverse colon. Biopsies were taken. Benign-appearing intrinsic severe stenosis in this transverse colon and was not traversed. Biopsies
were taken. Descending colon, rectum and sigmoid appeared normal.
CVS: S1-S2 normal
Chest: CTA B/L
Abdomen: Soft, mild diffuse tenderness, Bowel sounds present
Extremities: No edema
# Colitis/terminal ileitis/stricture/stenosis in the transverse colon severe inflammation in the transverse colon
Weight loss
Suspected IBD
CRP elevated 193
Check stool calprotectin-pending
Hold Empiric antibiotics per discussion with GI
Stool studies rule out infection-C. difficile negative, Giardia negative. Stool cultures are pending
IV steroids started
# Slightly elevated TSH-repeat again tomorrow
# Hyponatremia-better
# Iron deficiency anemia-IV iron
# Anxiety and depression-on bupropion
# DVT prophylaxis-SCDs and Lovenox
# Full code
D/W RN
D/W GI
Part of this note was created using voice recognition system. Occasional wrong word or��sound alike� substitutions may have inadvertently occurred due to the inherent limitations of voice recognition software. If noted kindly bring it to my
attention for correction.
Original Note:
Today's Communication/Plan
-
Colonoscopy showing likely Crohn's ileocolitis
IV steroids
N.p.o.
Work note
Assessment / Plan
Assessment / Plan
Patient is a 35y M with PMH significant for depression who presents to ED complaining of 8 months of weight loss, left -sided abdominal pain, loose / watery stools, etc. CT abdomen pelvis concerning for inflammatory bowel disease. Patient was
admitted for IBD workup. On admission Na 131, glucose 111, iron <20, TIBC 175, % sat no reported, ferritin 211, CRP 193.3, platelets 537, hbg 10.9 with drop to 9, MCV 74.1 albumin 3.4. Colonoscopy showed localized severe inflammation with erythema
pseudopolyps and edema. Descending colon and rectum and sigmoid colon appeared normal. However procedure had to be aborted due to bowel stenosis in the transverse colon due to biopsy and stenosis. GI started patient on IV steroids to treat likely
Crohn's ileocolitis as we await pathology.
#Abdominal pain
# Chronic diarrhea
Suspected IBD, Crohn's disease
CT concerning for active acute Crohn's disease and ileum and proximal colon
Elevated ESR CRP
Colonoscopy showed likely Crohn's ileocolitis awaiting pathology
-GI consult, appreciate recs
-Check stool cultures
Giardia negative Cryptosporidium negative C. difficile negative
Pending Salmonella Campylobacter Shiga
-Check fecal calprotectin
- Hep panel negative
- IGRA pending
- N.p.o.
-IV solumedrol 20 mg Q8h
- Antiemetics as needed
- Analgesics as needed
#Anemia of chronic disease
#Microcytic anemia
MCV 74
Hgb 10.9
TIBC 175
Ferritin 211
Iron less than 20
Likely due to underlying IBD
- S/p IV iron
#Hyponatremia, improving
131 on admission today 134
related to poor oral intake
-Continue IVFs
-Recheck sodium
#Depression
-Continue bupropion
DVT proph: SCDs plus Lovenox
Code Status: Full Code
Anticipated Discharge: 24 - 48 hours
Subjective/Interval History
-
Patient was seen at bedside today. Reports some levels of abdominal pain with mild decreased pain. No issues overnight no fevers chills chest pain or shortness of breath no nausea or vomiting. Patient had multiple episodes of diarrhea with bowel
prep for colonoscopy. However is on no blood or maroon-colored stools. Updated patient on colonoscopy results and the need for IV steroids. Patient asked for work note. Date of Service: August 21, 2025
Objective Data
-
Labs:
Laboratory Results
08/21/25
08:15
WBC 4.0 L
Hgb 9.0 L
Hct 29.5 L
Plt Count 384
PT 17.3 H
INR 1.38
Sodium 134 L
Potassium 4.1
Chloride 108 H
Carbon Dioxide 26
BUN 6 L
Creatinine 1.0
Glucose 82
Calcium 8.6
Vital Signs:
Vital Signs
Temp Pulse Resp BP Pulse Ox
97.4 F 62 18 95/59 99
08/21/25 07:15 08/21/25 07:15 08/21/25 07:15 08/21/25 07:15 08/20/25 23:31
Review of Systems
-
History Source: Patient
Constitutional: Reports No Appetite, Fatigue and Sleep Disturbance; Denies Fever, Night Sweats or Chills
EENT: Denies Sore Throat or Runny Nose
Respiratory: Reports No Symptoms; Denies Cough or Trouble Breathing
Cardiac: Reports No Symptoms; Denies Chest Pain or Palpitations
Abdomen/GI: Reports Abdominal Pain and Diarrhea; Denies Nausea, Vomiting, Constipated or Bloody Stools
Genitourinary: Denies Dysuria
Musculoskeletal: Reports No Symptoms
Skin: Reports No Symptoms
Physical Exam
-
General: Well Developed, No Apparent Distress and Comfortable; Negative Well Nourished, Respiratory Distress or Fever
HEENT: Normocephalic and Atraumatic
Respiratory: Clear to Auscultation; Negative Wheezes or Crackles
Cardiac: Regular Rhythm and S1/S2; Negative Murmur
GI: Soft, Nondistended, Normal Bowel Sounds and Tender (Left upper and lower quadrants)
Musculoskeletal: No Clubbing and No Edema
Skin: Warm and Dry
Neuro: Awake, Alert and Oriented
[2025-08-21] MEDS: FERRLECIT 110 MG IV (14:07)
[2025-08-21 15:15] VITALS: BP 91/62
[2025-08-21] MEDS: NSS 1000 IV ×2 (16:15→23:27)
--- NOTE | 2025-08-21 16:53 | PTCARENOTE ---
Took over care of pt at 11am. Pt was just returning from his colonoscopy. Given prn Dilaudid for abdominal pain. Pt continues to be NPO with NSS infusing at 125ml/hr. Call becker in reach.
--- NOTE | 2025-08-21 18:06 | PTCARENOTE ---
pt with complaint pain 07/08. he rec'd Dilaudid 0.5mg at 1608 and says his pain is still 8*10.next dose isn't due until 190. Dr Carter aware and ordered a now dose of Dilaudid 0.5.
[2025-08-21 23:00] VITALS: BP 101/58
[2025-08-22] MEDS: SOLU-MEDROL PF 20 MG IV ×3 (04:06→18:19)
[2025-08-22] MEDS: DILAUDID 0.5 MG IV ×5 (06:19→22:13)
[2025-08-22 07:50] VITALS: BP 126/64
[2025-08-22] MEDS: WELLBUTRIN XL (24 hour extended release) 300 MG PO (08:34)
[2025-08-22] MEDS: NSS 1000 IV (08:41)
[2025-08-22] MEDS: TYLENOL 650 MG PO ×2 (08:42→22:21)
[2025-08-22 08:54] LABS: Hematocrit 31.6 % (39.0-52.0); Hemoglobin 9.8 g/dL (13.0-18.0); Mean Corp Hgb Conc. 31.0 g/dL (33.0-37.0); Mean Corpuscular Volume 73.8 fL (80.0-94.0); Platelet Count 455 10^3/uL (130-400); Red Cell Dist. Width 15.0 % (11.5-14.5)
[2025-08-22 09:24] LABS: ALT (SGPT) 12 U/L (0-50); AST (SGOT) 13 U/L (17-59); Albumin 2.8 g/dl (3.5-5.0); Alkaline Phosphatase 39 U/L (38-126); Blood Urea Nitrogen 9 mg/dl (9-20); Calcium 8.8 mg/dl (8.4-10.2); Carbon Dioxide 25 mmol/L (22-30); Chloride 105 mmol/L (98-107); Estimated Creatinine Clearance > 125 ml/min; Glucose 99 mg/dl (70-99); Potassium 4.8 mmol/L (3.5-5.1); Sodium 132 mmol/L (135-145); Total Protein 5.5 g/dl (6.3-8.2); eGFR > 60.00
--- NOTE | 2025-08-22 10:25 | W.PN.HOSP.TC ---
Today's Communication/Plan
-
Continue IV steroids
Clear liquid diet
Assessment / Plan
Assessment / Plan
Patient is a 35y M with PMH significant for depression who presents to ED complaining of 8 months of weight loss, left -sided abdominal pain, loose / watery stools, etc. CT abdomen pelvis concerning for inflammatory bowel disease. Patient was
admitted for IBD workup. On admission Na 131, glucose 111, iron <20, TIBC 175, % sat no reported, ferritin 211, CRP 193.3, platelets 537, hbg 10.9 with drop to 9, MCV 74.1 albumin 3.4. Colonoscopy showed localized severe inflammation with erythema
pseudopolyps and edema. Descending colon and rectum and sigmoid colon appeared normal. However procedure had to be aborted due to bowel stenosis in the transverse colon due to biopsy and stenosis. GI started patient on IV steroids to treat likely
Crohn's ileocolitis as we await pathology.
#Abdominal pain
# Chronic diarrhea
Suspected IBD, Crohn's disease
CT concerning for active acute Crohn's disease and ileum and proximal colon
Elevated ESR CRP
Colonoscopy showed likely Crohn's ileocolitis awaiting pathology
-GI consult, appreciate recs
-Check stool cultures
Giardia negative Cryptosporidium negative C. difficile negative
Pending Salmonella Campylobacter Shiga
-Check fecal calprotectin
- Hep panel negative
- IGRA pending
- Clear liquid diet
-IV solumedrol 20 mg Q8h
- Antiemetics as needed
- Analgesics as needed
#Anemia of chronic disease
#Microcytic anemia
MCV 74
Hgb 10.9
TIBC 175
Ferritin 211
Iron less than 20
Likely due to underlying IBD
- S/p IV iron
#Hyponatremia
131 on admission today 132
related to poor oral intake
-Continue IVFs
-Recheck sodium
#Depression
-Continue bupropion
# Slightly elevated TSH-repeat a OP
TSH 5.5
DVT proph: SCDs plus Lovenox
Code Status: Full Code
Anticipated Discharge: 24 - 48 hours
Subjective/Interval History
-
Patient was seen at bedside, reports feeling much better than yesterday. He rates the pain as 4 out of 10, denies any fevers nausea chills chest pain shortness of breath. Date of Service: August 22, 2025
Objective Data
-
Labs:
Laboratory Results
08/22/25
07:56
WBC 9.7
Hgb 9.8 L
Hct 31.6 L
Plt Count 455 H
Sodium 132 L
Potassium 4.8
Chloride 105
Carbon Dioxide 25
BUN 9
Creatinine 0.8
Glucose 99
Calcium 8.8
Total Bilirubin 0.3
AST 13 L
ALT 12
Alkaline Phosphatase 39
Vital Signs:
Vital Signs
Temp Pulse Resp BP Pulse Ox
97.6 F 72 16 126/64 98
08/22/25 07:50 08/22/25 07:50 08/22/25 07:50 08/22/25 07:50 08/22/25 07:50
I&O
08/21/25 08/22/25 08/23/25
06:59 06:59 06:59
Intake Total 0 / 0
Balance 0 / 0
Review of Systems
-
History Source: Patient
Constitutional: Denies Fever or Chills
EENT: Denies Sore Throat or Runny Nose
Respiratory: Denies Cough or Trouble Breathing
Cardiac: Denies Chest Pain or Palpitations
Abdomen/GI: Reports Abdominal Pain; Denies Nausea, Vomiting or Diarrhea
Genitourinary: Denies Dysuria
Skin: Denies Itching
Neuro: Denies Dizzy or Headache
Physical Exam
-
General: No Apparent Distress and Comfortable; Negative Fever
HEENT: Normocephalic and Atraumatic
Respiratory: Clear to Auscultation; Negative Wheezes or Crackles
Cardiac: Regular Rhythm and S1/S2; Negative Murmur
GI: Soft, Nondistended, Normal Bowel Sounds and Tender (Left upper lower quadrant 4/10)
Skin: Warm and Dry
Neuro: Awake and Alert
--- NOTE | 2025-08-22 13:20 | W.PN.GI.CBS2 ---
Today's Communication / Plan
-
Start clear liquid diet
Continue IV solumedrol 20mg IV q8
Await path
Recheck ESR, CRP in am
Advance diet as tolerated
Assessment / Plan
-
Summary: 35yo with hx depression with about 8 months of GI symptoms with abdominal pain left sided, wt loss 35 lbs and change in stool pattern with diarrhea. His symptoms were up and down but last 2 weeks worse. He did seek care with MD in
[place] and was set up for EGD/colon but not until September. He states with continued symptoms present for evaluation. On admission- CT with concern for severe acute active crohn's disease in ileum and proximal colon small amount of ascites,
moderate right sided mesenteric lymphadenopathy, mild HSM. Pt admits to left sided pain. Pain is worse with eating and better with resting. He also has nausea without vomiting but denies any issue with odynophagia, dysphagia, GERD, constipation,
blood or black in stools. No hx EGD or colonoscopy in past. no family hx IBD. On admission Na 131, glucose 111, iron <20, TIBC 175, % sat no reported, ferritin 211, CRP 193.3, platelets 537, hbg 10.9 with drop to 9, MCV 74.1 albumin 3.4.
08/21/25 COLONOSCOPY- Severe edema, erythema, pseudopolyps in transverse colon, unable to pass colonoscope. L colon normal. Bx taken throughout
Impression:
Crohn's ileocolitis. Started on IV solumedrol 08/21
Wt loss, diarrhea and left sided abdominal pain x [address] suggests severe acute active crohn's disease in ileum and proximal colon. ESR 51, CRP 193 on admission
Subjective
Subjective
Feeling better. Abd pain improved
Objective
Data Reviewed
Laboratory Data:
Laboratory Results
08/22/25 07:56
08/22/25 07:56
Laboratory Results
PT 17.3 Sec (11.4-14.6) H 08/21/25 08:15
INR 1.38 08/21/25 08:15
Magnesium 1.9 mg/dl (1.6-2.3) 08/21/25 08:15
Total Bilirubin 0.3 mg/dl (0.2-1.3) 08/22/25 07:56
AST 13 U/L (17-59) L 08/22/25 07:56
ALT 12 U/L (0-50) 08/22/25 07:56
Alkaline Phosphatase 39 U/L (38-126) 08/22/25 07:56
Amylase 41 U/L (30-110) 08/19/25 13:12
Lipase < 10 U/L (23-300) L 08/19/25 13:12
Vital Signs and I&O:
Vital Signs
Temp Pulse Resp BP Pulse Ox
97.6 F 72 16 126/64 98
08/22/25 07:50 08/22/25 07:50 08/22/25 07:50 08/22/25 07:50 08/22/25 07:50
I&O
08/21/25 08/22/25 08/23/25
06:59 06:59 06:59
Intake Total 0 / 0
Balance 0 / 0
Physical Exam
Physical Exam
GI: Soft, Non Distended and Non Tender
--- NOTE | 2025-08-22 13:38 | W.PN.UPDATE ---
Update Note
Progress Note Update
Seen and examined the patient. Agree with the plan set forth by the resident. See changes in my documentation
34-year-old male with left-sided abdominal pain, watery stools. No blood in the stools
CT abdomen pelvis-severe acute active Crohn's disease involving ileum and proximal colon with severe wall thickening and mucosal hyperenhancement. Acute infectious ileocolitis is less likely given the chronicity. Small amount of ascites in the
cul-de-sac. Moderate right-sided mesenteric lymphadenopathy. Mild hepatosplenomegaly. Transitional lumbosacral vertebral segment
Colonoscopy-localized severe inflammation characterized by erythema, pseudopolyps and congestion in the transverse colon. Biopsies were taken. Benign-appearing intrinsic severe stenosis in this transverse colon and was not traversed. Biopsies
were taken. Descending colon, rectum and sigmoid appeared normal.
CVS: S1-S2 normal
Chest: CTA B/L
Abdomen: Soft, mild diffuse tenderness, Bowel sounds present
Extremities: No edema
# Colitis/terminal ileitis/stricture/stenosis in the transverse colon severe inflammation in the transverse colon
Weight loss
Suspected IBD
CRP elevated 193
Check stool calprotectin-pending
Hold Empiric antibiotics per discussion with GI
Stool studies rule out infection-C. difficile negative, Giardia negative. Stool cultures are pending
IV steroids started
His pain seems to be better
Started on clear liquids
# Slightly elevated TSH-repeat a OP
# Hyponatremia-Stop IV fluids
# Iron deficiency anemia-IV iron
# Anxiety and depression-on bupropion
# Hypoalbuminemia
# DVT prophylaxis-SCDs and Lovenox
# Full code
D/W RN
D/W GI
Part of this note was created using voice recognition system. Occasional wrong word or��sound alike� substitutions may have inadvertently occurred due to the inherent limitations of voice recognition software. If noted kindly bring it to my
attention for correction.
[2025-08-22] MEDS: FERRLECIT 110 MG IV (13:56)
[2025-08-22] MEDS: NSS IV (14:28)
[2025-08-22 15:10] VITALS: BP 117/59
[2025-08-22 23:13] VITALS: BP 102/55
[2025-08-23] MEDS: DILAUDID 0.5 MG IV ×6 (01:13→21:23)
[2025-08-23] MEDS: SOLU-MEDROL PF 20 MG IV ×3 (03:29→18:04)
[2025-08-23] MEDS: ZOFRAN 4 MG IV (04:58)
[2025-08-23 07:15] VITALS: BP 104/64
[2025-08-23 07:57] LABS: Hematocrit 30.7 % (39.0-52.0); Hemoglobin 9.8 g/dL (13.0-18.0); Mean Corp Hgb Conc. 31.9 g/dL (33.0-37.0); Mean Corpuscular Volume 72.2 fL (80.0-94.0); Platelet Count 484 10^3/uL (130-400); Red Cell Dist. Width 15.1 % (11.5-14.5)
[2025-08-23 08:13] LABS: Blood Urea Nitrogen 9 mg/dl (9-20); Calcium 9.4 mg/dl (8.4-10.2); Carbon Dioxide 27 mmol/L (22-30); Chloride 105 mmol/L (98-107); Estimated Creatinine Clearance 100 ml/min; Glucose 126 mg/dl (70-99); Magnesium 2.2 mg/dl (1.6-2.3); Potassium 4.3 mmol/L (3.5-5.1); Sodium 134 mmol/L (135-145); eGFR > 60.00
[2025-08-23 08:14] LABS: C-Reactive Protein 29.50 mg/L (0.0-10.00)
[2025-08-23] MEDS: WELLBUTRIN XL (24 hour extended release) 300 MG PO (08:35)
--- NOTE | 2025-08-23 09:15 | W.PN.HOSP.TC ---
Addendum entered and electronically signed by Zayra Mercer MD 08/23/25 17:36:
Seen and examined the patient with the resident. Agree with the plan set forth by the resident. Please see changes in my documentation.
35M suspected new dx Crohn's dz hx 8 mo wt loss left sided abd pain associate watery stools.
Physical Exam
General: No acute distress, appears comfortable at this time
HEENT: Normocephalic and Atraumatic
Respiratory: Clear to Auscultation; Negative Wheezes or Crackles
Cardiac: Regular Rhythm, S1/S2 and Murmur
GI: Soft, Nondistended, Normal Bowel Sounds, mild tenderness
Skin: Warm and Dry
Neuro: AOx3 conversant coherent
Psych: Calm
#Abdominal pain
# Chronic diarrhea
#Suspected Crohn's, new dx
#Anemia of chronic disease
#Microcytic anemia
# Leukocytosis, likely d/t steroids
# Slightly elevated TSH
Repeat TSH reflex/T4 in AM
Follow pathology
GI eval appreciated
Full Liquid diet as per GI, possible advancement to low residue tomorrow with switch to oral steroids if continues to improve/tolerate
Possible discharge tomorrow if continues to improve
I spent a total of 37 minutes with the patient or on the floor. More than 50% of this time involved counseling and coordination of care.
Original Note:
Today's Communication/Plan
-
Advance diet to full liquids
Continue IV steroids
Assessment / Plan
Assessment / Plan
Patient is a 35y M with PMH significant for depression who presents to ED complaining of 8 months of weight loss, left -sided abdominal pain, loose / watery stools, etc. CT abdomen pelvis concerning for inflammatory bowel disease. Patient was
admitted for IBD workup. On admission Na 131, glucose 111, iron <20, TIBC 175, % sat no reported, ferritin 211, CRP 193.3, platelets 537, hbg 10.9 with drop to 9, MCV 74.1 albumin 3.4. Colonoscopy showed localized severe inflammation with erythema
pseudopolyps and edema. Descending colon and rectum and sigmoid colon appeared normal. However procedure had to be aborted due to bowel stenosis in the transverse colon due to biopsy and stenosis. GI started patient on IV steroids to treat likely
Crohn's ileocolitis as we await pathology.
#Abdominal pain
# Chronic diarrhea
Suspected IBD, Crohn's disease
CT concerning for active acute Crohn's disease and ileum and proximal colon
Elevated ESR CRP, downtrending
Colonoscopy showed likely Crohn's ileocolitis awaiting pathology
-GI consult, appreciate recs
-Check stool cultures
Giardia negative Cryptosporidium negative C. difficile negative
Pending Salmonella Campylobacter Shiga
-Check fecal calprotectin
- Hep panel negative
- IGRA negative
-IV solumedrol 20 mg Q8h
- Antiemetics as needed
- Analgesics as needed
- Advance diet per GI
#Anemia of chronic disease
#Microcytic anemia
MCV 74
Hgb 10.9
TIBC 175
Ferritin 211
Iron less than 20
Likely due to underlying IBD
- S/p IV iron
# Leukocytosis
Due to IV steroids
No fevers chills
No shortness of breath
Continue to monitor
#Hyponatremia
131 on admission today 134
related to poor oral intake
Encourage p.o. intake
DC IV fluids
-Recheck sodium
#Depression
-Continue bupropion
# Slightly elevated TSH-repeat as OP
TSH 5.5
Possibly related to acute flare of IBD
DVT proph: SCDs plus Lovenox
Code Status: Full Code
Anticipated Discharge: 24 - 48 hours
Subjective/Interval History
-
Patient was seen bedside reports feeling a lot better and tolerated clear liquids well. Did have some gurgling and episodes of pain after eating however this subsided rates his pain scale as 1/10. Also reported that he went to the bathroom to
stool and was able to have formed stool with no blood. Reports no shortness of breath nausea vomiting chest pain. Date of Service: August 23, 2025
Objective Data
-
Labs:
Laboratory Results
08/23/25
07:22
WBC 14.6 H
Hgb 9.8 L
Hct 30.7 L
Plt Count 484 H
Sodium 134 L
Potassium 4.3
Chloride 105
Carbon Dioxide 27
BUN 9
Creatinine 1.0
Glucose 126 H
Calcium 9.4
Vital Signs:
Vital Signs
Temp Pulse Resp BP Pulse Ox
97.7 F 76 16 104/64 99
08/23/25 07:15 08/23/25 07:15 08/23/25 07:15 08/23/25 07:15 08/23/25 07:15
I&O
08/22/25 08/23/25 08/24/25
06:59 06:59 06:59
Intake Total 0 / 0 240 / 240
Balance 0 / 0 240 / 240
Review of Systems
-
History Source: Patient
Constitutional: Denies Fever, Fatigue or Chills
EENT: Reports No Symptoms Reported; Denies Sore Throat or Runny Nose
Respiratory: Denies Cough, Trouble Breathing or Wheezing
Cardiac: Denies Chest Pain or Palpitations
Abdomen/GI: Reports Abdominal Pain; Denies Nausea, Vomiting, Diarrhea, Constipated or Bloody Stools
Musculoskeletal: Reports No Symptoms
Skin: Denies Itching or Rash
Neuro: Denies Dizzy or Headache
Physical Exam
-
General: Well Developed, Well Nourished, No Apparent Distress and Comfortable; Negative Fever
HEENT: Normocephalic and Atraumatic
Respiratory: Clear to Auscultation; Negative Wheezes or Crackles
Cardiac: Regular Rhythm, S1/S2 and Murmur
GI: Soft, Nondistended, Normal Bowel Sounds and Tender (Left lower quadrant )
Skin: Warm and Dry
Neuro: Awake, Alert and Oriented
--- NOTE | 2025-08-23 09:31 | W.PN.GI.CBS2 ---
Today's Communication / Plan
-
Advance to full liquids
CRP down from 193 (adm) to 29. ESR down 51 to 43
Continue IV steroids
If doing well, advance to low residue diet tomorrow and switch to prednisone 40mg
Hopefully d/c soon. Can discuss biologics as outpt
Await path
Assessment / Plan
-
Summary: 35yo with hx depression with about 8 months of GI symptoms with abdominal pain left sided, wt loss 35 lbs and change in stool pattern with diarrhea. His symptoms were up and down but last 2 weeks worse. He did seek care with MD in
[place] and was set up for EGD/colon but not until September. He states with continued symptoms present for evaluation. On admission- CT with concern for severe acute active crohn's disease in ileum and proximal colon small amount of ascites,
moderate right sided mesenteric lymphadenopathy, mild HSM. Pt admits to left sided pain. Pain is worse with eating and better with resting. He also has nausea without vomiting but denies any issue with odynophagia, dysphagia, GERD, constipation,
blood or black in stools. No hx EGD or colonoscopy in past. no family hx IBD. On admission Na 131, glucose 111, iron <20, TIBC 175, % sat no reported, ferritin 211, CRP 193.3, platelets 537, hbg 10.9 with drop to 9, MCV 74.1 albumin 3.4.
08/21/25 COLONOSCOPY- Severe edema, erythema, pseudopolyps in transverse colon, unable to pass colonoscope. L colon normal. Bx taken throughout
Impression:
Crohn's ileocolitis. Started on IV solumedrol 08/21
Wt loss, diarrhea and left sided abdominal pain x [address] suggests severe acute active crohn's disease in ileum and proximal colon. ESR 51, CRP 193 on admission
Subjective
Subjective
Date of Service: August 23, 2025
Feeling better. Abd pain improved. Tolerated clears, some discomfort after eating
Objective
Data Reviewed
Laboratory Data:
Laboratory Results
08/23/25 07:22
08/23/25 07:22
Laboratory Results
PT 17.3 Sec (11.4-14.6) H 08/21/25 08:15
INR 1.38 08/21/25 08:15
Magnesium 2.2 mg/dl (1.6-2.3) 08/23/25 07:22
Total Bilirubin 0.3 mg/dl (0.2-1.3) 08/22/25 07:56
AST 13 U/L (17-59) L 08/22/25 07:56
ALT 12 U/L (0-50) 08/22/25 07:56
Alkaline Phosphatase 39 U/L (38-126) 08/22/25 07:56
Amylase 41 U/L (30-110) 08/19/25 13:12
Lipase < 10 U/L (23-300) L 08/19/25 13:12
Vital Signs and I&O:
Vital Signs
Temp Pulse Resp BP Pulse Ox
97.7 F 76 16 104/64 99
08/23/25 07:15 08/23/25 07:15 08/23/25 07:15 08/23/25 07:15 08/23/25 07:15
I&O
08/22/25 08/23/25 08/24/25
06:59 06:59 06:59
Intake Total 0 / 0 240 / 240
Balance 0 / 0 240 / 240
Physical Exam
Physical Exam
GI: Soft, Non Distended and Tender (mild R sided)
[2025-08-23] MEDS: FERRLECIT 110 MG IV (14:28)
[2025-08-23 15:25] VITALS: BP 117/76
[2025-08-23] MEDS: TYLENOL 650 MG PO (18:09)
[2025-08-23 23:00] VITALS: BP 103/66
[2025-08-24] MEDS: TYLENOL 650 MG PO ×2 (00:19→13:09)
[2025-08-24] MEDS: DILAUDID 0.5 MG IV ×4 (00:23→12:18)
[2025-08-24] MEDS: SOLU-MEDROL PF 20 MG IV (02:56)
[2025-08-24 07:10] VITALS: BP 124/58
[2025-08-24 08:01] LABS: Hematocrit 31.8 % (39.0-52.0); Hemoglobin 9.9 g/dL (13.0-18.0); Mean Corp Hgb Conc. 31.1 g/dL (33.0-37.0); Mean Corpuscular Volume 74.5 fL (80.0-94.0); Platelet Count 474 10^3/uL (130-400); Red Cell Dist. Width 15.5 % (11.5-14.5)
[2025-08-24 08:32] LABS: Blood Urea Nitrogen 10 mg/dl (9-20); Calcium 9.6 mg/dl (8.4-10.2); Carbon Dioxide 31 mmol/L (22-30); Chloride 104 mmol/L (98-107); Estimated Creatinine Clearance 91 ml/min; Glucose 115 mg/dl (70-99); Potassium 5.0 mmol/L (3.5-5.1); Sodium 135 mmol/L (135-145); eGFR > 60.00
[2025-08-24] MEDS: DELTASONE 40 MG PO (09:01)
[2025-08-24] MEDS: WELLBUTRIN XL (24 hour extended release) 300 MG PO (09:02)
--- NOTE | 2025-08-24 09:24 | W.PN.HOSP.TC ---
Addendum entered and electronically signed by Nisreen Flores MD 08/24/25 11:56:
Attending�addendum:
I saw and evaluated the patient. I reviewed the resident�s note and agree with findings and plan as documented in the resident�s note.��patient seen and examined at bedside, denies any chest pain or shortness of breath, no abdominal pain, no nausea,
no vomiting, no diarrhea or constipation.
Will advance diet to low residue,
Physical�exam:
GENERAL : Patient is awake, alert, oriented x3
HEENT: Nonicteric sclerae, PERRLA, EOMI. Oropharynx clear. Moist mucous membranes. Conjunctivae appear well perfused.
CHEST: Chest wall is nontender.
HEART: Regular rate and rhythm without murmurs.
LUNGS: Clear to auscultation bilaterally.
ABDOMEN: Soft, positive bowel sounds, nontender, no organomegaly.
RECTAL: Deferred.
MUSCLES/EXTREMITIES: No abnormal range of motion, no swelling.SKIN: No rash, no excessive bruising, petechiae, or purpura.
NEUROLOGIC: Cranial nerves II-XII intact without motor/sensory deficit.
�
Assessment/plan:
Abdominal pain/diarrhea, suspect chron's disease.
Biopsy pending.
Tolerating full liquid diet.
Advance her to low residual diet.
Cleared for discharge as per GI on prednisone tapering.
Follow-up with GI in 2 weeks and consider biological agent upon follow-up.
Patient will be discharged today if tolerates low residue
CODE STATUS: Full code
DVT prophylaxis: Lovenox
Diet: LR diet
Disposition: Discharge home today on prednisone tapering
�
Total time spent on today�s encounter was 51 minutes which included time spent in counseling the patient/family regarding diagnosis and treatment plan as listed above, goals of care, and symptom management. Case was discussed with nursing staff,
specialists, and care coordinators/case management. All labs and imaging personally reviewed by me. Remainder the time spent in detailed review of previous records, lab data, imaging, and other medical provider documentation.
Original Note:
Today's Communication/Plan
-
Prednisone taper
Dispo planning
Assessment / Plan
Assessment / Plan
Patient is a 35y M with PMH significant for depression who presents to ED complaining of 8 months of weight loss, left -sided abdominal pain, loose / watery stools, etc. CT abdomen pelvis concerning for inflammatory bowel disease. Patient was
admitted for IBD workup. On admission Na 131, glucose 111, iron <20, TIBC 175, % sat no reported, ferritin 211, CRP 193.3, platelets 537, hbg 10.9 with drop to 9, MCV 74.1 albumin 3.4. Colonoscopy showed localized severe inflammation with erythema
pseudopolyps and edema. Descending colon and rectum and sigmoid colon appeared normal. However procedure had to be aborted due to bowel stenosis in the transverse colon due to biopsy and stenosis. GI started patient on IV steroids to treat likely
Crohn's ileocolitis as we await pathology.
#Abdominal pain
# Chronic diarrhea
Suspected IBD, Crohn's disease
CT concerning for active acute Crohn's disease and ileum and proximal colon
Elevated ESR CRP, downtrending
Colonoscopy showed likely Crohn's ileocolitis awaiting pathology
-GI consult, appreciate recs
Giardia negative Cryptosporidium negative C. difficile negative
Salmonella Campylobacter Shiga negative
-Check fecal calprotectin pending
- Hep panel negative
- IGRA negative
-d/c on prednisone taper- 40mg x 1 week, 30mg x 1 week, 20mg x 1 week, 10mg x 1 week
-OP follow-up for Biologics, pathology
- Antiemetics as needed
- Analgesics as needed
- Advance diet per GI
#Anemia of chronic disease
#Microcytic anemia
MCV 74
Hgb 10.9
TIBC 175
Ferritin 211
Iron less than 20
Likely due to underlying IBD
- S/p IV iron
# Leukocytosis
#Thrombocytosis
Due to IV steroids
No fevers chills
No shortness of breath
Continue to monitor
#Hyponatremia, resolving
131 on admission today 135
related to poor oral intake
Encourage p.o. intake
DC IV fluids
-Recheck sodium
#Depression
-Continue bupropion
# Slightly elevated TSH
-repeat as OP
TSH 5.5
Possibly elevated due to acute flare of IBD
DVT proph: SCDs plus Lovenox
Code Status: Full Code
Anticipated Discharge: Today
Subjective/Interval History
-
Patient was seen at bedside this morning, reports doing well. He tolerated full liquid diet yesterday without issues. He went to the bathroom had a couple episodes of diarrhea that were associated with pain/discomfort. Otherwise when he is
resting he has no more pain. He has no nausea vomiting chest pain shortness of breath fevers or chills. Date of Service: August 24, 2025
Objective Data
-
Labs:
Laboratory Results
08/24/25
07:15
WBC 12.6 H
Hgb 9.9 L
Hct 31.8 L
Plt Count 474 H
Sodium 135
Potassium 5.0
Chloride 104
Carbon Dioxide 31 H
BUN 10
Creatinine 1.1
Glucose 115 H
Calcium 9.6
Vital Signs:
Vital Signs
Temp Pulse Resp BP Pulse Ox
97.7 F 65 18 124/58 98
08/24/25 07:10 08/24/25 07:10 08/24/25 07:10 08/24/25 07:10 08/24/25 07:10
I&O
08/23/25 08/24/25 08/25/25
06:59 06:59 06:59
Intake Total 240 / 240 1140 / 1140
Balance 240 / 240 1140 / 1140
Review of Systems
-
History Source: Patient
Constitutional: Denies Fever or Chills
EENT: Denies Sore Throat or Runny Nose
Respiratory: Denies Cough or Trouble Breathing
Cardiac: Denies Chest Pain or Palpitations
Abdomen/GI: Reports Diarrhea; Denies Abdominal Pain, Nausea or Vomiting
Genitourinary: Denies Dysuria
Skin: Denies Itching
Neuro: Denies Dizzy, Headache or Weakness
Physical Exam
-
General: Well Developed, Well Nourished, No Apparent Distress and Comfortable; Negative Pain or Fever
HEENT: Normocephalic and Atraumatic
Respiratory: Clear to Auscultation; Negative Wheezes or Crackles
Cardiac: Regular Rhythm and S1/S2; Negative Murmur
GI: Soft, Nondistended, Normal Bowel Sounds and Tender (To deep palpation)
Musculoskeletal: No Clubbing and No Edema
Skin: Warm and Dry
Neuro: Awake, Alert and Oriented
--- NOTE | 2025-08-24 09:49 | W.PN.GI.CBS2 ---
Today's Communication / Plan
-
OK for d/c on prednisone taper- 40mg x 1 week, 30mg x 1 week, 20mg x 1 week, 10mg x 1 week
F/U with me in office to discuss biologics
Told pt to call if sx flare as he tapers
Await path. I will notify of results when they are resulted
Will sign off
Assessment / Plan
-
Summary: 35yo with hx depression with about 8 months of GI symptoms with abdominal pain left sided, wt loss 35 lbs and change in stool pattern with diarrhea. His symptoms were up and down but last 2 weeks worse. He did seek care with MD in
[place] and was set up for EGD/colon but not until September. He states with continued symptoms present for evaluation. On admission- CT with concern for severe acute active crohn's disease in ileum and proximal colon small amount of ascites,
moderate right sided mesenteric lymphadenopathy, mild HSM. Pt admits to left sided pain. Pain is worse with eating and better with resting. He also has nausea without vomiting but denies any issue with odynophagia, dysphagia, GERD, constipation,
blood or black in stools. No hx EGD or colonoscopy in past. no family hx IBD. On admission Na 131, glucose 111, iron <20, TIBC 175, % sat no reported, ferritin 211, CRP 193.3, platelets 537, hbg 10.9 with drop to 9, MCV 74.1 albumin 3.4.
08/21/25 COLONOSCOPY- Severe edema, erythema, pseudopolyps in transverse colon, unable to pass colonoscope. L colon normal. Bx taken throughout
Impression:
Crohn's ileocolitis. Started on IV solumedrol 08/21
Wt loss, diarrhea and left sided abdominal pain x [address] suggests severe acute active crohn's disease in ileum and proximal colon. ESR 51, CRP 193 on admission. Much improved on repeat 08/23
Subjective
Subjective
Date of Service: August 24, 2025
Feeling well. Tolerated full liquids and getting low residue for lunch
Objective
Data Reviewed
Laboratory Data:
Laboratory Results
08/24/25 07:15
08/24/25 07:15
Laboratory Results
PT 17.3 Sec (11.4-14.6) H 08/21/25 08:15
INR 1.38 08/21/25 08:15
Magnesium 2.2 mg/dl (1.6-2.3) 08/23/25 07:22
Total Bilirubin 0.3 mg/dl (0.2-1.3) 08/22/25 07:56
AST 13 U/L (17-59) L 08/22/25 07:56
ALT 12 U/L (0-50) 08/22/25 07:56
Alkaline Phosphatase 39 U/L (38-126) 08/22/25 07:56
Amylase 41 U/L (30-110) 08/19/25 13:12
Lipase < 10 U/L (23-300) L 08/19/25 13:12
Vital Signs and I&O:
Vital Signs
Temp Pulse Resp BP Pulse Ox
97.7 F 65 18 124/58 98
08/24/25 07:10 08/24/25 07:10 08/24/25 07:10 08/24/25 07:10 08/24/25 07:10
I&O
08/23/25 08/24/25 08/25/25
06:59 06:59 06:59
Intake Total 240 / 240 1140 / 1140
Balance 240 / 240 1140 / 1140
Physical Exam
Physical Exam
GI: Soft, Non Distended and Non Tender
--- NOTE | 2025-08-24 13:00 | W.DCSUMMARY ---
Addendum entered and electronically signed by Nisreen Flores MD 08/24/25 13:55:
Attending�addendum:
I saw and evaluated the patient. I reviewed the resident�s note and agree with findings and plan as documented in the resident�s note.��patient seen and examined at bedside, denies any chest pain or shortness of breath, no abdominal pain, no nausea,
no vomiting, no diarrhea or constipation.
Will advance diet to low residue,
Physical�exam:
GENERAL : Patient is awake, alert, oriented x3
HEENT: Nonicteric sclerae, PERRLA, EOMI. Oropharynx clear. Moist mucous membranes. Conjunctivae appear well perfused.
CHEST: Chest wall is nontender.
HEART: Regular rate and rhythm without murmurs.
LUNGS: Clear to auscultation bilaterally.
ABDOMEN: Soft, positive bowel sounds, nontender, no organomegaly.
RECTAL: Deferred.
MUSCLES/EXTREMITIES: No abnormal range of motion, no swelling.SKIN: No rash, no excessive bruising, petechiae, or purpura.
NEUROLOGIC: Cranial nerves II-XII intact without motor/sensory deficit.
�
Assessment/plan:
Abdominal pain/diarrhea, suspect chron's disease.
Biopsy pending.
Tolerating full liquid diet.
Advance her to low residual diet.
Cleared for discharge as per GI on prednisone tapering.
Follow-up with GI in 2 weeks and consider biological agent upon follow-up.
Patient will be discharged today if tolerates low residue
CODE STATUS: Full code
DVT prophylaxis: Lovenox
Diet: LR diet
Disposition: Discharge home today on prednisone tapering
�
Total time spent on today�s encounter was 40 minutes which included time spent in counseling the patient/family regarding diagnosis and treatment plan as listed above, goals of care, and symptom management. Case was discussed with nursing staff,
specialists, and care coordinators/case management. All labs and imaging personally reviewed by me. Remainder the time spent in detailed review of previous records, lab data, imaging, and other medical provider documentation.
Original Note:
Documented by User: Wilmer Carter MD, Resident 08/24/25 13:16
Discharge Summary
Discharge Data
Date of Admission: 08/19/25
Date of Discharge: 08/24/25
-
Pending Results: Yes
Additional Pending Results:
Colonoscopy pathology
Fecal calprotectin
Follow-up with GI
Hospital Course
Discharging Physician :
Dr. Flores
Dr. Carter
Disposition :
Home
Primary care physician :
Dr. Mcdaniels
Principal Discharge diagnosis :
Acute flare inflammatory bowel disease
Chronic Discharge diagnosis :
Anemia of chronic disease
Chronic diarrhea
Depression
Hospital Course :
Mr. Cash is a 35y M with PMH significant for depression who presents to ED on 08/19/2025 complaining of 8 months of weight loss, left -sided abdominal pain, loose/watery stools, etc. CT abdomen pelvis in the ED concerning for inflammatory
bowel disease. Patient was admitted for IBD workup. On admission Na 131, glucose 111, iron <20, TIBC 175, % sat no reported, ferritin 211, CRP 193.3, platelets 537, hbg 10.9 with drop to 9, MCV 74.1 albumin 3.4, AFVSS. Patient was started on IV
fluids made n.p.o. for colonoscopy, and given supplemental iron. GI was consulted for IBD workup. On 08/21 colonoscopy showed localized severe inflammation with erythema pseudopolyps and edema. Descending colon and rectum and sigmoid colon
appeared normal. However procedure had to be aborted due to bowel stenosis in the transverse colon due to biopsy and stenosis. GI started patient on IV steroids to treat likely Crohn's ileocolitis as we await pathology. Hepatitis panel came back
negative, TB test negative, stool cultures negative for Giardia cryptosporidium C. difficile Salmonella Campylobacter Shigella. Patient improved with IV steroid therapy with reduction of abdominal pain from 08/07 to 11/07 and reduction in diarrhea.
GI advance the patient's diet from clear liquids to low residue during his hospitalization, and repeat CRP was downtrending. Patient tolerated advance diet and he was stable for discharge on prednisone taper. Patient to follow-up with GI
outpatient for starting biologic. At discharge patient was AFVSS.
Important imaging findings :
08/19/2025 CT abdomen pelvis:
IMPRESSION:
1. SEVERE ACUTE ACTIVE CROHN'S DISEASE involving the ILEUM and PROXIMAL COLON with severe wall thickening and mucosal hyperenhancement. An acute infectious ileocolitis is a less likely diagnostic possibility given the chronicity of the patient's
symptoms.
2. Small amount of ascites in the pelvic cul-de-sac.
3. Moderate right sided mesenteric lymphadenopathy.
4. Mild hepatosplenomegaly.
5. Transitional lumbosacral vertebral segment.
Procedure findings :
08/21/2025, colonoscopy:
Impression:
- The procedure was aborted due to bowel stenosis.
- Localized severe inflammation was found in the transverse colon
secondary to colitis. Biopsied.
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 Biopsied.
- The descending colon, rectum and sigmoid colon are normal.
Biopsied.
Discharge Plan
-
Patient Disposition: Home (Routine Discharge)
Discharge Diagnosis/Procedures: Inflammatory bowel disease
Condition: Good
Diet: As tolerated, Regular and Low Residue
Activity: As tolerated
Driving Restrictions: As prior to admission
Bathing Restrictions: None
Referrals:
PCP [Other] - in less than 1 week
Reilly Corral MD [Active, Gastroenterology] - in one week
Art Mcdaniels DO, Resident [Family Practice Resident Year2, General] - in one to two weeks
Additional Discharge Medication Instructions: prednisone taper- 40mg x 1 week, 30mg x 1 week, 20mg x 1 week, 10mg x 1 week
Prescriptions:
New
prednisone 10 mg Tablet
10 mg PO DIRECTED Qty: 70 0RF
Rx Instructions:
see taper instructions
40mg x 1 week, 30mg x 1 week, 20mg x 1 week, 10mg x 1 week
Continued
bupropion HCl 300 mg tablet extended release 24 hr
300 mg PO DAILY
Discharge Orders:
Discharge Patient (As Directed); Ordered 08/24/25
Ordered By: Nisreen Flores
Discharge Date and Time
Print Language: ARGENTINE

Documented by User: Nisreen Flores MD 08/24/25 13:55
Discharge Summary
Discharge Data
Date of Admission: 08/19/25
Date of Discharge: 08/24/25
Discharge Plan
-
Patient Disposition: Home (Routine Discharge)
Discharge Diagnosis/Procedures: Inflammatory bowel disease
Condition: Good
Diet: As tolerated, Regular and Low Residue
Activity: As tolerated
Driving Restrictions: As prior to admission
Bathing Restrictions: None
Referrals:
PCP [Other] - in less than 1 week
Reilly Corral MD [Active, Gastroenterology] - in one week
Art Mcdaniels DO, Resident [Family Practice Resident Year2, General] - in one to two weeks
Additional Discharge Medication Instructions: prednisone taper- 40mg x 1 week, 30mg x 1 week, 20mg x 1 week, 10mg x 1 week
Prescriptions:
New
prednisone 10 mg Tablet
10 mg PO DIRECTED Qty: 70 0RF
Rx Instructions:
see taper instructions
40mg x 1 week, 30mg x 1 week, 20mg x 1 week, 10mg x 1 week
Continued
bupropion HCl 300 mg tablet extended release 24 hr
300 mg PO DAILY
Discharge Orders:
Discharge Patient (As Directed); Ordered 08/24/25
Ordered By: Nisreen Flores
Discharge Date and Time
Print Language: ARGENTINE
[2025-08-24 13:45] VITALS: BP 106/64
[2025-08-24 15:12] LABS: Calprotectin, Fecal >3000 ug/g (<=49)
== END 2025-08-24 14:17 | disposition home or self-care (01) | DRG 386 ==
LOC: 4 WEST ACU 20:26
PROVIDERS: Emergency Medicine; Hospitalist; Internal Medicine; Nurse Practitioner Adult Health; Physician Assistant Medical; Specialist; Student in an Organized Health Care Education/Training Program; ADMITTING PHYSICIAN Hospitalist; ATTENDING PHYSICIAN General Practice; EMERGENCY PHYSICIAN Emergency Medicine; OTHER PHYSICIAN Internal Medicine
PROC: 0DBM8ZX Excision of Descending Colon, Via Natural or Artificial Opening Endoscopic, Diagnostic (ICD-10-PCS; 2025-08-21)
PROC: 0DBP8ZX Excision of Rectum, Via Natural or Artificial Opening Endoscopic, Diagnostic (ICD-10-PCS; 2025-08-21)
PROC: 0DBN8ZX Excision of Sigmoid Colon, Via Natural or Artificial Opening Endoscopic, Diagnostic (ICD-10-PCS; 2025-08-21)
PROC: 0DBL8ZX Excision of Transverse Colon, Via Natural or Artificial Opening Endoscopic, Diagnostic (ICD-10-PCS; 2025-08-21)
DX: K50.80 Crohn's disease of both small and large intestine without complications (principal); E87.1 Hypo-osmolality and hyponatremia; F17.210 Nicotine dependence, cigarettes, uncomplicated; D50.9 Iron deficiency anemia, unspecified; F32.A Depression, unspecified; F41.9 Anxiety disorder, unspecified; D63.8 Anemia in other chronic diseases classified elsewhere; Z53.9 Procedure and treatment not carried out, unspecified reason
CPT/HCPCS: 74177; 80048; 80053; 82150; 82607; 82728; 82746; 83540; 83550; 83690; 83735; 83993; 84443; 85025; 85027; 85610; 85652; 86140; 86480; 86704; 86705; 86706; 86803; 87045; 87046; 87077; 87324; 87328; 87329; 87340; 87427; 87449; 88305; J2916; Q9967